=== PATIENT | male | born 1945 | race Hispanic/Latino ===

== ENCOUNTER 2020-03-25 08:32 | Day surgery (SDC) | payer OTHER, MEDICARE ==
--- OUTSIDE RECORDS SUMMARY | 2020-03-25 08:22 | XMS REPORT | Clinical Summary ---
:1945 Author Organization [facility] Address [address] [place] [address] Care Team Providers Name Role Phone Unavailable Primary Care Provider Unavailable Allergies Not on File Medications Not on file Active Problems Not on file Social History Tobacco Use Types Packs/Day Years Used Date Never Assessed Sex Assigned at Date Recorded Not on file Job Start Date Occupation Industry Not on file Not on file Not on file Travel History Travel Start Travel End No recent travel history available. Last Filed Vital Signs Not on file Plan of Treatment Date Type Specialty Care Team Description 05/08/2020 Hospital Encounter Donell Moore MD [address] [place] [address] 05/08/2020 Surgery Donell Moore CYSTOSCOP Y,INSERTION MD Sabino TRANSPROSTATIC IMPLANT [address] [place] [address] Results Not on fileafter 03/25/2019 Insurance Payer Benefit Plan / Group Subscriber ID Type Phone A ddress MEDICARE MEDICARE A B xxxxxxxxxxx Medicare UNITED HE[employer] - UNITED MEDICARE HMO xxxxxxxxxxx MEDICARE [facility] CARE
[2020-03-25 08:45] LABS: Absolute Lymphocytes (CBC) 1.1 K/uL (0.7-4.9); Basophils % 0.5 % (0-1.3); Hematocrit 42.6 % (39.6-49.0); Lymphocytes % 21.5 % (15.3-44.8); MPV 8.3 fL (7.6-11.3); RBC Red Blood Cell Count 4.52 M/uL (4.33-5.43)
--- NOTE | 2020-03-25 08:50 | RAD REPORT ---
EXAM DESCRIPTION: Ean Cantrell (2 Views)03/25/2020 8:34 am CLINICAL HISTORY: Preop for neck mass surgery COMPARISON: None FINDINGS: The lungs appear clear of acute infiltrate. The heart is normal size IMPRESSION: No acute abnormalities displayed
[2020-03-25] MEDS ORDERED: NA CHLORIDE 0.9% 1,000 ML ONE (09:11)
[2020-03-25] MEDS ORDERED: CEFAZOLIN/SWI 1gm 1 GM/10 ML SYR ONE (09:11)
[2020-03-25 09:22] LABS: BUN Blood Urea Nitrogen 17 mg/dL (7-18); Bicarbonate 28 mmol/L (21-32); Glucose Level 162 mg/dL (74-106); Potassium 4.2 mmol/L (3.5-5.1); Sodium Level 140 mmol/L (136-145)
[2020-03-25] MEDS ORDERED: MIDAZOLAM HCL 2 MG/2 ML INJ ONE (10:00)
[2020-03-25] MEDS ORDERED: LIDOCAINE 2% MPF 5 ML VIAL ONE (10:00)
[2020-03-25] MEDS ORDERED: dexAMETHasone 10 MG/ML VIAL ONE (10:00)
[2020-03-25] MEDS ORDERED: propofoL 200 MG/20 ML VIAL IV ONE (10:00)
[2020-03-25] MEDS ORDERED: FENTANYL CITR 100 MCG/2 ML ONE (10:00)
[2020-03-25] MEDS ORDERED: GLYCOPYRROLATE 0.2 MG/ML SYR ONE (11:03)
--- OUTSIDE RECORDS SUMMARY | 2020-03-25 11:04 | XMS REPORT | Clinical Summary ---
:1945 Author Organization [facility] Address [address] [place] [address] Care Team Providers Name Role Phone Unavailable [...] Moore MD [address] [place] [address] 05/08/2020 Surgery Donell Moore CYSTOSCOP Y,INSERTION MD Sabino TRANSPROSTATIC IMPLANT [address] [place] [address] Results Not on fileafter 03/25/2019 Insurance Payer Benefit Plan / Group Subscriber ID Type Phone A ddress MEDICARE MEDICARE A B xxxxxxxxxxx Medicare UNITED HEALTHCARE - UNITED MEDICARE HMO xxxxxxxxxxx MEDICARE MGD CARE
[2020-03-25] MEDS ORDERED: KETOROLAC 30 MG/ML INJ ONE (11:31)
--- NOTE | 2020-03-25 11:44 | EKG ---
Test Date: 2020-03-25 Test Time: 07:09:21 Corn Grinder: JUSTIN MEASUREMENT RESULTS: Intervals: Rate: 51 WY: 160 QRSD: 94 QT: 392 QTc: 361 Section: P: 68 WY: 160 QRS: 59 T: 56 INTERPRETIVE STATEMENTS: Sinus bradycardia Otherwise normal ECG Compared to ECG 05/22/2007 14:11:35 No significant changes Electronically Signed On 03-25-20 11:43:03 CDT by Jared Bee
[2020-03-25 12:07] VITALS: O2SAT 100
[2020-03-25 12:35] VITALS: TEMP 97.2
[2020-03-25] MEDS ORDERED: CODEINE 30MG/APAP 300MG TAB ONE (13:10)
[2020-03-25 13:55] VITALS: BP 148/72
--- NOTE | 2020-03-25 14:28 | OP ---
Date of Procedure: 03/25/2020 Surgeon: Hesham Kiran MD Preoperative Diagnoses: Left neck mass and inflamed right back mass. Postoperative Diagnoses: Left neck mass and inflamed right back mass. Procedure: 1.Wide excision of left neck mass 4 x 2 cm with layered closure. Length of closure is 4 cm. 2.Wide excision, right back mass, 8 x 3 cm with layered closure. Length of closure was 8 cm. Estimated Blood Loss: Minimal. Specimen: Left neck and right back mass. Findings: Sebaceous cyst. Anesthesia: General. Complications: None. Patient tolerated the procedure in stable condition, taken to Recovery in good general condition. Procedure In Detail: Patient was brought to the OR and placed in supine position. General anesthesi a begun. Patient was placed in the right lateral position. Prepped and draped in the usual sterile fashion. Marcaine 0.5% was infiltrated locally. A 15-blade was used to make a 4 x 2 cm incision on the left side. Subcutaneous tissue was divided. The entire cyst was excised and sent to Pathology a s specimen. Wound irrigated. Bleeding was controlled with cautery. Flaps created. 2-0 chromic was used to approximate the subcutaneous tissue and 3-0 nylon was used to close the skin. Then 8 x 3 cm incision was made on the right back. Found an inflamed sebaceous cyst, approximately 2.5 cm in diam eter. Subcutaneous tissue divided. Entire cyst wall and contents excised, sent to Pathology as spec imen. Wound irrigated. Bleeding controlled with cautery. Flaps created. 2-0 chromic was used to a pproximate the subcutaneous tissue and 3-0 nylon used to close the skin. Sterile dressing applied. Patient was awakened and taken to Recovery in good general condition. Discharge Note: Patient will go to Day Surgery and home when stable. Disposition: Home. Condition: Stable. Discharge Instructions: Resume home medications and diet. Activity as tolerated. No heavy lifting. Remove outer dressing in 2 days. Shower. Keep wound clean, dry. Follow up in my office in 2 week s. Call for appointment. Tylenol No. 3 one tablet p.o. q.4 p.r.n. pain. Cipro 500 mg p.o. q.12. D ry and wash the wound daily. JOE/JUAN Voice ID: [id number] Report ID: [id number]
== END 2020-03-25 13:45 | disposition home or self-care (01) ==
LOC: OR 08:32
PROVIDERS: ATTEND Surgery
PROC: 0JB70ZZ Excision of Back Subcutaneous Tissue and Fascia, Open Approach (ICD-10-PCS; 2020-03-25)
PROC: 0JB50ZZ Excision of Left Neck Subcutaneous Tissue and Fascia, Open Approach (ICD-10-PCS; principal; 2020-03-25 10:00)
DX: L72.0 Epidermal cyst (principal); R22.2 Localized swelling, mass and lump, trunk
CPT/HCPCS: 93005; 85025; 80048; 36415; 82947; 88304; 71046; 11424; 11406; J2704; J2250; J3010; J1100; J0690; J7030; 88305

== ENCOUNTER 2021-10-28 10:50 | Inpatient (IN) | payer OTHER, MEDICARE ==
--- OUTSIDE RECORDS SUMMARY | 2021-10-28 10:54 | XMS REPORT | Continuity of Care Document ---
:1945 Author Organization [facility] t Address [address] [place] [address] Care Team Providers Name Role Phone Pcp, Does Not Have A Primary Care Physician ENMANUEL MOORE Attending Clinician Unavailable Nurse, Pob Immunization Attending Clinician Unavailable Anderson Knox DO Attending Clinician Hitesh Moore MD Attending Clinician ENMANUEL OMORE Admitting Clinician Unavailable Payers Payer Name Policy Type Policy Number Effective Date Expiration Date S ashley MEDICARE A B [id number] 2012 00:00:00 [facility] [id number] 2019 HEALTHCARE 00:00:00 UNITED MEDICARE HMO [id number] 2019 00:00:00 Problems Condition Condition Condition Status Onset Resolution Last Treating Co mments Source Name Details Category Date Date Treatment Clinician Date BPH BPH Disease Active 2010-10 [facility] (benign (benign 1-14 College prostatic prostatic 00:00: of hyperplasi hyperplasi 00 Me dicin a) a) e Hypertroph Hypertroph Disease Active 2010-10 [facility] of y of 0-17 College prostate prostate 00:00: of with with 00 Medicin urinary urinary e obstructio obstructio n and n and other other lower lower urinary urinary tract tract symptoms symptoms (LUTS) (LUTS) Elevated Elevated Disease Active 2010-10 Balaji r prostate prostate 0-17 Colleg e specific specific 00:00: of antigen antigen 00 Medicin (PSA) (PSA) e Allergies, Adverse Reactions, Alerts Allergy Allergy Status Severity Reaction(s) Onset Inactive Treating Comm ents Source Name Type Date Date Clinician KETAMINE [facility]ergy [facility] MORPHINE Allergy Active N\T\V [facility] Ketamine Propensi Active hallucina [facility] te Dustin adverse 00:00: of reaction 00 Medicin s to e drug Morphine Propensi Active Nausea And [facility] ty to Vomiting 05-06 Dustin adverse 00:00: of reaction 00 Medicin s to e drug NO KNOWN Allergy Active [facility] Social History Social Habit Start Date Stop Date Quantity Comments Source Alcohol intake 2021-06-09 2021-06-09 .29 /d [facility] Col lege of 00:00:00 00:00:00 Medicine Alcohol Comment 2011-11-29 2011-11-29 social drinker [facility] of 00:00:00 00:00:00 Medicine Tobacco use and 2011-08-02 2011-08-02 Never used [facility] of exposure 00:00:00 00:00:00 Medicine Sex [birth year] [facility] of 00:00:00 00:00:00 Medicine Smoking Status Start Date Stop Date Source Unknown if ever smoked [facility] Never smoker [facility] o f Medicine Medications Ordered Filled Start Stop Current Ordering Indication Dosage Frequency Signature Comments Components Source Medication Medication Date Date Medication? Clinician (SIG) Name Name finasteride Yes [id number] 5mg Take 1 Praneeth (PROSCAR) 5 8-24 Tablet by Col lege MG tablet 00:00: mouth of 00 daily. Medicin e meloxicam Yes [id number] 7.5mg Take 1 [facility] (MOBIC) 7.5 8-24 Tablet by Col lege MG tablet 00:00: mouth of 00 daily. Medicin e finasteride 2020- No [id number] Take 1 [facility] (PROSCAR) 5 6-11 08-24 tablet by Co llege MG tablet 00:00: 00:00 mouth once o f 00 :00 daily Medicin e amoxicillin 2019-10 Yes [id number] 1{tbl} Take 1 [facility] -clavulanat 2-07 Tablet by Col lege e 00:00: mouth two of (AUGMENTIN) 00 times Medicin 875-125 MG daily. e per tablet metformin 2019-10- No 500mg Take 500 [facility] (GLUCOPHAGE 11-17 12 mg by Ada coles ) 500 MG 16:04: 00:00 mouth. of tablet 17 :00 Medicin e levothyroxi 2019-10- No 112ug Take 112 Praneeth ne 11-17 12 mcg by Dustin (SYNTHROID) 16:04: 00:00 mouth. of 112 MCG 11 :00 Medicin tablet e finasteride 2019-10- No 5mg Take 5 mg [facility] (PROSCAR) 5 - 12 by mouth. Co llege MG tablet 16:04: 00:00 of 04 :00 Medicin e meloxicam 2019-10 Yes [id number] 7.5mg Take 1 [facility] (MOBIC) 7.5 2-01 Tablet by Col lege MG tablet 00:00: mouth of 00 daily. Medicin e sulfamethox 2019-10 Yes [id number] 1{tbl} Take 1 Praneeth azole-trime 2-01 Tablet by Col lege thoprim 00:00: mouth two of (BACTRIM 00 times Medicin DS) 800-160 daily. e MG per tablet meloxicam 2019-10 Yes [id number] 7.5mg Take 1 [facility] (MOBIC) 7.5 2-01 Tablet by Col lege MG tablet 00:00: mouth of 00 daily. Medicin e sulfamethox 2019-10 Yes [id number] 1{tbl} Take 1 Praneeth azole-trime 2-01 Tablet by Col lege thoprim 00:00: mouth two of (BACTRIM 00 times Medicin DS) 800-160 daily. e MG per tablet finasteride Yes [id number] TAKE 1 [facility] (PROSCAR) 5 5-14 TABLET BY Col lege MG tablet 00:00: MOUTH ONCE of 00 DAILY Medicin e finasteride Yes [id number] TAKE 1 [facility] (PROSCAR) 5 5-14 TABLET BY Col lege MG tablet 00:00: MOUTH ONCE of 00 DAILY Medicin e finasteride Yes [id number] TAKE 1 [facility]ane[facility] (PROSCAR) 5 5-14 TABLET BY Col lege MG tablet 00:00: MOUTH ONCE of 00 DAILY Medicin e aspirin 81 2019- 2020- No 81mg Take 81 mg Praneeth MG tablet 3-10 03-10 by mouth Colle ge 20:39: 00:00 daily. of 29 :00 Medicin e finasteride Yes [id number] TAKE 1 [facility] (PROSCAR) 5 2-18 TABLET BY Col lege MG tablet 00:00: MOUTH ONCE of 00 DAILY Medicin e amoxicillin 2020- No 1{tbl} Take 1 Tab [facility] -clavulanat 7-15 03-10 by mouth Col lege e 00:00: 00:00 two times of (AUGMENTIN) 00 :00 daily. Medici n 875-125 MG e per tablet levothyroxi Yes TAKE 1 [facility] 6-06 TABLET BY Dustin (SYNTHROID) 00:00: MOUTH ONCE of 112 MCG 00 DAILY Medicin tablet e levothyroxi Yes TAKE 1 [facility] 6-06 TABLET BY Dustin (SYNTHROID) 00:00: MOUTH ONCE of 112 MCG 00 DAILY Medicin tablet e levothyroxi Yes TAKE 1 [facility] 6-06 TABLET BY Dustin (SYNTHROID) 00:00: MOUTH ONCE of 112 MCG 00 DAILY Medicin tablet e levothyroxi Yes TAKE 1 [facility] 6-06 TABLET BY Dustin (SYNTHROID) 00:00: MOUTH ONCE of 112 MCG 00 DAILY Medicin tablet e levothyroxi Yes TAKE 1 [facility] 6-06 TABLET BY Dustin (SYNTHROID) 00:00: MOUTH ONCE of 112 MCG 00 DAILY Medicin tablet e levofloxaci 2020- No [facility] 5-20 03-10 College (LEVAQUIN) 00:00: 00:00 of 500 MG 00 :00 Medicin tablet e tobramycin- 2020- No [facility] dexamethaso 5-07 03-10 College ne 00:00: 00:00 of (TOBRADEX) 00 :00 Medicin 0.3-0.1 % e ophthalmic solution metformin Yes [facility] (GLUCOPHAGE 1-04 Dustin ) 500 MG 00:00: of tablet 00 Medicin e metformin Yes [facility] (GLUCOPHAGE 1-04 Dustin ) 500 MG 00:00: of tablet 00 Medicin e metformin Yes [facility] (GLUCOPHAGE 1-04 Dustin ) 500 MG 00:00: of tablet 00 Medicin e metformin Yes [facility] (GLUCOPHAGE 1-04 Dustin ) 500 MG 00:00: of tablet 00 Medicin e metformin Yes [facility] (GLUCOPHAGE 1-04 Dustin ) 500 MG 00:00: of tablet 00 Medicin e levothyroxi 2020- No [facility] 07-14-10 Dustin (SYNTHROID) 00:00: 00:00 of 100 MCG 00 :00 Medicin tablet e Immunizations Ordered Filled Immunization Date Status Comments [facility] e Immunization Name Name SARS-COV-2 COVID-19 2021-06-18 Completed Unive rsity of MODERNA VACCINE 00:00:00 [facility] SARS-COV-2 COVID-19 2020-12-17 Completed Unive rsity of MODERNA VACCINE 00:00:00 [facility] SARS-COV-2 COVID-19 2020-11-19 Completed Unive rsity of MODERNA VACCINE 00:00:00 [facility] Vital Signs Vital Name Observation Time Observation Value Comments Source HEIGHT 2020-03-13 00:00:00 180.3 cm WEIGHT 2020-03-13 00:00:00 96.752 kg Systolic blood 2021-06-09 19:20:00 137 mm[Hg] [facility] pressure Medicine Diastolic blood 2021-06-09 19:20:00 79 mm[Hg] [facility] Medicine Heart rate 2021-06-09 19:20:00 60 /min [facility] Respiratory rate 2021-06-09 19:20:00 17 /min [facility] Body height 2021-06-09 19:20:00 180.3 cm [facility] Body weight 2021-06-09 19:20:00 96.616 kg [facility] BMI 2021-06-09 19:20:00 29.71 kg/m2 [facility] Systolic blood 2020-10-28 15:49:00 162 mm[Hg] [facility] pressure Medicine Diastolic blood 2020-10-28 15:49:00 82 mm[Hg] [facility] pressure Medicine Heart rate 2020-10-28 15:49:00 54 /min [facility] Body temperature 2020-10-28 15:49:00 36.94 Aimee [facility] Heart rate 2020-09-16 16:02:00 52 /min [facility] ol[facility] of Medicine Body height 2020-09-16 16:02:00 180.3 cm [facility] Body weight 2020-09-16 16:02:00 96.616 kg [facility] BMI 2020-09-16 16:02:00 29.71 [facility]m2 [facility] Sy[facility] blood 2020-09-16 16:02:00 137 mm[Hg] [facility] pressure Medicine Diastolic blood 2020-09-16 16:02:00 73 mm[Hg] [facility] pressure Medicine Systolic blood 2020-06-06 20:17:00 138 mm[Hg] [facility] pressure Medicine Diastolic blood 2020-06-06 20:17:00 71 mm[Hg] [facility] pressure Medicine Heart rate 2020-06-06 20:17:00 58 /min [facility] ollege [facility] Systolic blood 2020-06-06 20:17:00 138 mm[Hg] [facility] pressure Medicine Diastolic blood 2020-06-06 20:17:00 71 mm[Hg] [facility] pressure Medicine Heart rate 2020-06-06 20:17:00 58 /min [facility] HEIGHT 2020-03-13 00:00:00 180.3 cm WEIGHT 2020-03-13 00:00:00 96.752 kg HEIGHT 2020-05-03 00:00:00 180.3 cm WEIGHT 2020-05-03 00:00:00 98.476 kg HEIGHT 2020-05-03 00:00:00 180.3 cm WEIGHT 2020-05-03 00:00:00 98.476 kg Systolic blood 2019-12-25 20:38:00 141 mm[Hg] [facility] pressure Medicine Diastolic blood 2019-12-25 20:38:00 72 mm[Hg] [facility] pressure Medicine Heart rate 2019-12-25 20:38:00 56 /min [facility] Medicine Body temperature 2019-12-25 20:38:00 36.44 Aimee [facility] Body height 2019-12-25 20:38:00 177.8 cm [facility] weight 2019-12-25 20:38:00 96.163 kg [facility] BMI 2019-12-25 20:38:00 30.42 kg/m2 [facility] Systolic blood 2019-12-25 20:38:00 141 mm[Hg] [facility] pressure Medicine Diastolic blood 2019-12-25 20:38:00 72 mm[Hg] [facility] Medicine Heart rate 2019-12-25 20:38:00 56 /min [facility] Body temperature 2019-12-25 20:38:00 36.44 Aimee [facility] Body height 2019-12-25 20:38:00 177.8 cm [facility] Body weight 2019-12-25 20:38:00 96.163 kg [facility] BMI 2019-12-25 20:38:00 30.42 kg/m2 [facility] Procedures Procedure Date / Time Performing Clinician Source Performed SARS-COV-2 COVID-19 2021-06-18 16:51:07 Doctor Unassigned, [facility],0.5ML,IM Name [facility] ([facility]) POCT URINALYSIS 2021-06-09 00:00:00 Donell Moore [facility] DIPSTICK Medicine LACEY,POST-VOID 2021-06-09 00:00:00 Donell Moore [facility],,NON-IMG Medicine POCT URINALYSIS 2020-10-28 00:00:00 Donell Moore [facility] DIPSTICK Medicine LACEY,POST-VOID 2020-10-28 00:00:00 Donell Moore [facility],,NON-IMG Medicine LACEY,POST-VOID 2020-06-06 20:34:00 Donell Moore [facility],,NON-IMG Medicine POCT URINALYSIS 2019-12-25 00:00:00 Donell Moore [facility] DIPSTICK Medicine LACEY,POST-VOID 2019-12-25 00:00:00 Donell Moore [facility] of RES,US,NON-IMG Medicine Plan of Care Planned Activity Planned Date Details Comments Source Future Scheduled 2021-06-09 CULTURE, Ordered: 06/09/2021 [facility] Test 14:33:34 URINE/SENSITIVITY of Medicin e ON ALL [code = 44220-7] Future Scheduled 2021-06-09 URINALYSIS AUTO 6 Occurrences [facility] Test 14:33:34 W/SCOPE [code = starting 06/09/2021 of Me dicine 07849-7] until 06/09/2022 Future Scheduled 2021-06-09 Screening for Prane[facility] Col lege Test 14:19:07 malignant neoplasm of Medici ne of colon (procedure) [code = 701327746] Future Scheduled 2021-06-09 TETANUS SHOT [facility] Test 14:19:07 (ADULT) [code = of Medicine TETANUS SHOT (ADULT)] Future Scheduled 2021-06-09 BMI FOLLOW UP PLAN [facility] Test 14:19:07 [code = BMI FOLLOW of Medici ne UP PLAN] Future Scheduled 2021-06-09 Hepatitis C [facility] Test 14:19:07 screening of Medicine (procedure) [code = 097377181] Future Scheduled 2021-06-09 ZOSTER VACCINE (1 [facility] Test 14:19:07 of 2) [code = of Medicine ZOSTER VACCINE (1 of 2)] Future Scheduled 2021-06-09 MEDICARE AWV [facility] Test 14:19:07 (Initial) [code = of Medicin e MEDICARE AWV (Initial)] Future Scheduled 2021-06-09 FALL SCREEN [code = [facility] Test 14:19:07 FALL SCREEN] of Medicine Future Scheduled 2021-06-09 PNEUMOVAX >=65 [facility] Test 14:19:07 (PPSV23) [code = of Medicine PNEUMOVAX >=65 (PPSV23)] Future Scheduled 2021-06-09 FLU VACCINE > 6 [facility] C [facility] Test 14:19:07 MONTHS [code = FLU of Medici ne VACCINE > 6 MONTHS] Future Scheduled COLON CANCER [facility] Test SCREENING: of Medicine COLONOSCOPY [code = COLON CANCER SCREENING: COLONOSCOPY] Future Scheduled COVID-19 Vaccine [facility] Test Evaluation [code = of Medici ne COVID-19 Vaccine Evaluation] Future Scheduled TETANUS SHOT [facility] Test (ADULT) [code = of Medicine TETANUS SHOT (ADULT)] Future Scheduled BMI FOLLOW UP PLAN [employer] Test [code = BMI FOLLOW of Medici ne UP PLAN] Future Scheduled HEPATITIS C [facility] Test SCREENING [code = of Medicin e HEPATITIS C SCREENING] Future Scheduled ZOSTER VACCINE (1 [facility] Test of 2) [code = of Medicine ZOSTER VACCINE (1 of 2)] Future Scheduled MEDICARE AWV Prane[facility] Test (Initial) [code = of Medicin e MEDICARE AWV (Initial)] Future Scheduled FALL SCREEN [code = [employer] Test FALL SCREEN] of Medicine Future Scheduled PNEUMOVAX >=65 [facility] Test (PPSV23) [code = of Medicine PNEUMOVAX >=65 (PPSV23)] Future Scheduled FLU VACCINE > 6 [facility] C [facility]lege Test MONTHS [code = FLU of Medici ne VACCINE > 6 MONTHS] Future Scheduled COLON CANCER [facility] Test SCREENING: of Medicine COLONOSCOPY [code = COLON CANCER SCREENING: COLONOSCOPY] Future Scheduled TETANUS SHOT [facility] Test (ADULT) [code = of Medicine TETANUS SHOT (ADULT)] Future Scheduled BMI FOLLOW UP PLAN [facility] Test [code = BMI FOLLOW of Medici ne UP PLAN] Future Scheduled HEPATITIS C [facility] Test SCREENING [code = of Medicin e HEPATITIS C SCREENING] Future Scheduled FALL SCREEN [code = [employer] Test FALL SCREEN] of Medicine Future Scheduled PNEUMOVAX >=65 [facility] Test (PPSV23) [code = of Medicine PNEUMOVAX >=65 (PPSV23)] Future Scheduled PREVNAR >= 65 [facility] Test (PCV13) [code = of Medicine PREVNAR >= 65 (PCV13)] Future Scheduled MEDICARE AWV [facility] Test (Initial) [code = of Medicin e MEDICARE AWV (Initial)] Future Scheduled FLU VACCINE > 6 [facility] Test MONTHS [code = FLU of Medici ne VACCINE > 6 MONTHS] Future Scheduled COLON CANCER [facility] Test SCREENING: of Medicine COLONOSCOPY [code = COLON CANCER SCREENING: COLONOSCOPY] Future Scheduled TETANUS SHOT [facility] Test (ADULT) [code = of Medicine TETANUS SHOT (ADULT)] Future Scheduled BMI FOLLOW UP PLAN [employer] Test [code = BMI FOLLOW of Medici ne UP PLAN] Future Scheduled HEPATITIS C [facility] Test SCREENING [code = of Medicin e HEPATITIS C SCREENING] Future Scheduled ZOSTER VACCINE (1 [facility] Test of 2) [code = of Medicine ZOSTER VACCINE (1 of 2)] Future Scheduled MEDICARE AWV [facility] Test (Initial) [code = of Medicin e MEDICARE AWV (Initial)] Future Scheduled FALL SCREEN [code = [employer] Test FALL SCREEN] of Medicine Future Scheduled PNEUMOVAX >=65 [facility] Test (PPSV23) [code = of Medicine PNEUMOVAX >=65 (PPSV23)] Future Scheduled FLU VACCINE > 6 [facility] C [facility] Test MONTHS [code = FLU of Medici ne VACCINE > 6 MONTHS] Future Scheduled URINALYSIS AUTO Ordered: 09/16/2020 [facility] Test W/SCOPE [code = of Medicine 72068-0] Future Scheduled CULTURE, Ordered: 09/16/2020 [facility] [employer] Test URINE/SENSITIVITY of Medicin e ON ALL [code = 63233-2] Future Scheduled COLON CANCER [facility] Test SCREENING: of Medicine COLONOSCOPY [code = COLON CANCER SCREENING: COLONOSCOPY] Future Scheduled TETANUS SHOT [facility] Test (ADULT) [code = of Medicine TETANUS SHOT (ADULT)] Future Scheduled BMI FOLLOW UP PLAN [employer] Test [code = BMI FOLLOW of Medici ne UP PLAN] Future Scheduled HEPATITIS C [facility] Test SCREENING [code = of Medicin e HEPATITIS C SCREENING] Future Scheduled ZOSTER VACCINE (1 [facility] Test of 2) [code = of Medicine ZOSTER VACCINE (1 of 2)] Future Scheduled MEDICARE AWV [facility] Test (Initial) [code = of Medicin e MEDICARE AWV (Initial)] Future Scheduled FALL SCREEN [code = [employer] Test FALL SCREEN] of Medicine Future Scheduled PNEUMOVAX >=65 [facility] Test (PPSV23) [code = of Medicine PNEUMOVAX >=65 (PPSV23)] Future Scheduled FLU VACCINE > 6 [facility] C [facility]lege Test MONTHS [code = FLU of Medici ne VACCINE > 6 MONTHS] Future Scheduled CYSTOSCOPY [code = 1 Occurrences [facility] Test [id number]] starting 12/25/2019 of Medic ine until 12/24/2020 Future Scheduled US TRANSRECTAL 1 Occurrences [facility] C [facility] Test [code = 86921-6] starting 12/25/2019 of M edicine until 07/26/2020 Encounters Start End Encounter Admission Attending Care Care Encounter Source Date/Time Date/Time Type Type Clinicians Facility Department ID 2021-07-21 Outpatient CHANDRA MOORE Surgery [id number] [facility] 15:32:42 CHRISTOPHER 2021-06-18 2021-06-18 Imm/Inj Nurse, Adc Pob Immunization [facility] [id number] [employer] 11:44:39 11:45:51 Visit Niels Knox 350.1.13 .10 [facility] 4.2.7.2.686 Latesha morillo Professio [id number] Ak dical nal [address] [place] [address] 2021-06-09 2021-06-09 Office CONNIE Moore [id number] [facility] 14:09:55 14:19:55 Visit Christopher AMBULATOR 350.1.13.21 College P Y 0.2.7.2.686 of [id number] Medi gregg 300 e 2020-10-28 2020-10-28 Office CONNIE Moore [id number] [facility] 09:04:29 09:14:29 Visit Christopher AMBULATOR 350.1.13.21 College P Y 0.2.7.2.686 of [id number] Medi gregg 300 e 2020-09-16 2020-09-16 Office CONNIE Moore [id number] [facility] 09:21:02 11:37:31 Visit Christopher AMBULATOR 350.1.13.21 College P Y 0.2.7.2.686 of [id number] Medi gregg 300 e 2020-06-06 2020-06-06 Office CONNIE Moore [id number] 14:45:52 15:36:35 Visit Christopher AMBULATOR 350.1.13.21 P Y 0.2.7.2.686 [id number] 2020-06-06 2020-06-06 CONNIE Meneses [id number] [place] [address] 14:45:52 15:36:35 Visit Christopher AMBULATOR 350.1.13.21 College P Y 0.2.7.2.686 of [id number] Medi gregg 300 e 2020-05-06 2020-05-06 Outpatient EL [facility] [id number] [facility] 00:00:00 00:00:00 2020-05-05 2020-05-05 Outpatient [facility] [id number] [facility] 00:00:00 00:00:00 2020-05-03 2020-05-03 Outpatient SLE SLE [id number] [facility] 00:00:00 00:00:00 2020-05-03 2020-05-03 Outpatient EL [facility] [id number] [facility] 00:00:00 00:00:00 2019-12-25 2019-12-25 CONNIE Meneses [id number] [place] [address] 14:28:27 16:08:26 Visit Christopher AMBULATOR 350.1.13.21 College P Y 0.2.7.2.686 of [id number] [facility] 300 e 2019-12-25 2019-12-25 CONNIE Meneses 1.2.840.114 [id number] 14:28:27 16:08:26 Visit Christopher AMBULATOR 350.1.13.21 P Y 0.2.7.2.686 [id number] Results Test Description Test Time Test Comments Results Result Comments Source POCT URINALYSIS DIPSTICK 2021-06-09 00:00:00 Test Item Value Reference Range Interpretation Comme nts COLOR UA (test code = 5778-6) Yellow YELLOW/STRAW CLARITY UA (test code = 52653-2) Clear CLEAR GLUCOSE UA (test code = 5792-7) Negative NEGATIVE BILIRUBIN UA (test code = 5770-3) Negative NEGATIVE KETONES UA (test code = 86015-8) Negative NEGATIVE SPECIFIC GRAVITY UA (test code = 5811-5) 1.005-1.035 BLOOD UA (test code = 5794-3) Negative NEGATIVE PH UA (test code = 5803-2) 5.0-9.0 PROTEIN UA (test code = 5804-0) Negative NEGATIVE UROBILINOGEN UA (test code = 5818-0) 0.02 E.U/DL NORMAL MG/DL LEUKOCYTE ESTERASE UA (test code = 5799-2) Negative NEGATIVE NITRITE UA (test code = 5802-4) Negative NEGATIVE REDUCING SUBSTANCES URINE (test code = 57250-3) [facility],POST-VOID RES,,[id number] 00:00:00 Test Item Value Reference Range Interpretation Comments PVR (test code = 6116) cc/[facility] [id number] 00:00:00 Test Item Value Reference Range Interpretation Comments COLOR UA (test code = 5778-6) Yellow YELLOW/STRAW CLARITY UA (test code = 22744-3) Clear CLEAR GLUCOSE UA (test code = 5792-7) Negative NEGATIVE BILIRUBIN UA (test code = 5770-3) Negative NEGATIVE KETONES UA (test code = 26138-7) Negative NEGATIVE SPECIFIC GRAVITY UA (test code = 1.005-1.035 A 5811-5) BLOOD UA (test code = 5794-3) Negative NEGATIVE PH UA (test code = 5803-2) 5-9 PROTEIN UA (test code = 5804-0) Negative NEGATIVE UROBILINOGEN UA (test code = 0.02 E.U/DL NORMAL MG/DL 5818-0) LEUKOCYTE ESTERASE UA (test code Negative NEGATIVE = 5799-2) NITRITE UA (test code = 5802-4) Negative NEGATIVE REDUCING SUBSTANCES URINE (test code = 77653-6) Lab Interpretation (test code = Abnormal 49880-3) [facility],POST-VOID RES,,[id number] 00:00:00 Test Item Value Reference Range Interpretation Comments PVR (test code = 6116) cc/ml [facility],POST-VOID RES,,[id number] 20:34:00 Test Item Value Reference Range Interpretation Comments PVR (test code = 6116) cc/ml [facility] [id number] 07:21:00 Test Item Value Reference Range Interpretation Comments POC-GLUCOSE METER 156 mg/dL 70-110 H : TESTED A T [facility] 6720 (REGINALDO) (test code [facility], = 1538) [address]: Upstairs Maid/Techni celena ID = [id number] for CAROL RAMOSMARILEEMICHELLE SARS-COV2/RT-PCR ([facility])2020-05-04 14:28:00 Test Item Value Reference Range Interpretation Comments SARS-COV2/RT-PCR (test code = Negative Not Detected, Negative [id number]) SARS-COV-[address] [facility] (test code = 2629193) Negative result for this test determines that SARS-CoV-2 RNA was not present in the specimen above the Limit of Detection (LOD). However, Negative results do not preclude SARS-CoV-2 infection and should not be used as the sole basis for treatment or patient management decisions. Negative results mustbe combined with clinical observations, patient history, and epidemiological information. A false negative result may occur if a specimen is improperly collected, transported or handled. A false negative result should be considered if patient's recent exposures or clinical presentation indicate that COVID-19 (SARS-CoV-2) is likely and diagnostic tests for other causes of illness are negative. Re-testing should be considered in cases of suspected false negatives.The limit of detection for this assay is 800 copies/mL.This SARS CoV-2 test is a real-time RT-PCR test intended for the qualitative detection of nucleic acid from SARS-CoV-2 in a nasopharyngeal swab specimen collected from individuals susp ected of COVID-19 by their healthcare provider.This test has not been Food and Drug Administration (FDA) cleared or approved. This is a modified version of an approved Emergency Use Authorization (EUA) and is in the process of review by the FDA. Once authorized by the FDA, the issued EUA will be effective until the declaration that circumstances exist justifying the authorization of the emergency use of in vitro diagnostic tests for detection and/or diagnosis of COVID-19 is terminated under Section 564(b)(2) of the Act or the EUA is revoked under Section 564(g) of the Act.Fact Sheet for Healthcare Providers:https://www.TSB.[employer]/sites/default/files/product/documents/Fact_Shee v_BK_Wpgdurtgk_Rtkj_IQPZ-TfJ-9.pdfFact Sheet for Healthcare Patients:https://www.TSB.[employer]/sites/default/files/product/ documents/Sttk_Gvoje_Czkwbqku_Twkq_WQYZ-FuJ-1.pdfPerforming Laboratory:[facility], [place] [address]ZIUMN CULTURE 2020-05-04 08:36:00 Test Item Value Reference Range Interpretation Comments CULTURE (BEAKER) (test 10-19,000 col/mL skin code = 1095) sander URINALYSIS W/ [id number] 10:16:00 Test Item Value Reference Range Interpretation Comments COLOR (BEAKER) (test code = 470) Yellow CLARITY (BEAKER) (test code = 469) Clear SPECIFIC GRAVITY UA (BEAKER) (test 1.027 1.001-1.035 code = 468) PH UA (BEAKER) (test code = 467) 5.5 5.0-8.0 PROTEIN UA (BEAKER) (test code = Negative Negative 464) GLUCOSE UA (BEAKER) (test code = 30 mg/dL Negative A 365) KETONES UA (BEAKER) (test code = Negative Negative 371) BILIRUBIN UA (BEAKER) (test code = Negative Negative 462) BLOOD UA (BEAKER) (test code = Negative Negative 461) NITRITE UA (BEAKER) (test code = Negative Negative 465) LEUKOCYTE ESTERASE UA (BEAKER) Negative Negative (test code = 466) UROBILINOGEN UA (BEAKER) (test 0.2 mg/dL 0.2-1.0 code = 463) RBC UA (BEAKER) (test code = 519) 7 /HPF WBC UA (BEAKER) (test code = 520) 2 /HPF MUCUS (BEAKER) (test code = 1574) Occasional AMORPHOUS CRYSTALS (BEAKER) (test Rare code = 1584) SOURCE(BEAKER) (test code = 2795) Upstairs Maid ID - [auto]Upstairs Maid ID - techBASIC METABOLIC [id number] 10:00:00 Test Item Value Reference Range Interpretation Comments SODIUM (BEAKER) 138 meq/L 136-145 (test code = 381) POTASSIUM (BEAKER) 4.6 meq/L 3.5-5.1 Specimen slightly (test code = 379) hemolyzed CHLORIDE (BEAKER) 108 meq/L 98-107 H (test code = 382) CO2 (BEAKER) (test 26 meq/L 22-29 code = 355) BLOOD UREA NITROGEN 17 mg/dL 7-21 (BEAKER) (test code = 354) CREATININE (BEAKER) 0.79 mg/dL 0.57-1.25 Specimen slightly (test code = 358) hemolyzed GLUCOSE RANDOM 187 mg/dL 70-105 H (BEAKER) (test code = 652) CALCIUM (BEAKER) 8.7 mg/dL 8.4-10.2 (test code = 697) EGFR (BEAKER) (test 96 mL/min/1.73 ESTIMA EDIE GFR IS code = 1092) sq m NOT ACCURATE CREATININE CLEARANCE IN PREDICTING GLOMERULAR FILTRATION RATE . ESTIMATED GFR I S NOT APPLICABLE FOR DIALYSIS PATIEN TS. Upstairs Maid ID - MANJIT CCBC W/PLT COUNT & AUTO [id number] 09:44:00 Test Item Value Reference Range Interpretation Comments WHITE BLOOD CELL COUNT (BEAKER) 5.1 K/ L 3.5-10.5 (test code = 775) RED BLOOD CELL COUNT (BEAKER) 4.67 M/ L 4.63-6.08 (test code = 761) HEMOGLOBIN (BEAKER) (test code = 14.8 GM/DL 13.7-17.5 410) HEMATOCRIT (BEAKER) (test code = 42.9 % 40.1-51.0 411) MEAN CORPUSCULAR VOLUME (BEAKER) 91.9 fL 79.0-92.2 (test code = 753) MEAN CORPUSCULAR HEMOGLOBIN 31.7 pg 25.7-32.2 (BEAKER) (test code = 751) MEAN CORPUSCULAR HEMOGLOBIN CONC 34.5 GM/DL 32.3-36.5 (BEAKER) (test code = 752) RED CELL DISTRIBUTION WIDTH 12.6 % 11.6-14.4 (BEAKER) (test code = 412) PLATELET COUNT (BEAKER) (test 146 K/CU MM 150-450 L code = 756) MEAN PLATELET VOLUME (BEAKER) 9.7 fL 9.4-12.4 (test code = 754) NUCLEATED RED BLOOD CELLS 0 /100 WBC 0-0 (BEAKER) (test code = 413) NEUTROPHILS RELATIVE PERCENT 67 % (BEAKER) (test code = 429) LYMPHOCYTES RELATIVE PERCENT 22 % (BEAKER) (test code = 430) MONOCYTES RELATIVE PERCENT 9 % (BEAKER) (test code = 431) EOSINOPHILS RELATIVE PERCENT 1 % (BEAKER) (test code = 432) BASOPHILS RELATIVE PERCENT 0 % (BEAKER) (test code = 437) NEUTROPHILS ABSOLUTE COUNT 3.42 K/ L 1.78-5.38 (BEAKER) (test code = 670) LYMPHOCYTES ABSOLUTE COUNT 1.14 K/ L 1.32-3.57 L (BEAKER) (test code = 414) MONOCYTES ABSOLUTE COUNT (BEAKER) 0.48 K/ L 0.30-0.82 (test code = 415) EOSINOPHILS ABSOLUTE COUNT 0.03 K/ L 0.04-0.54 L (BEAKER) (test code = 416) BASOPHILS ABSOLUTE COUNT (BEAKER) 0.02 K/ L 0.01-0.08 (test code = 417) IMMATURE GRANULOCYTES-RELATIVE 0 % 0-1 PERCENT (BEAKER) (test code = 2801) POCT URINALYSIS [id number] 00:00:00 Test Item Value Reference Range Interpretation Comments COLOR UA (test code = 5778-6) Yellow YELLOW/STRAW CLARITY UA (test code = 01610-0) Clear CLEAR GLUCOSE UA (test code = 5792-7) Negative NEGATIVE BILIRUBIN UA (test code = 5770-3) Negative NEGATIVE KETONES UA (test code = 95328-3) Negative NEGATIVE SPECIFIC GRAVITY UA (test code = 1.005-1.035 5811-5) BLOOD UA (test code = 5794-3) Negative NEGATIVE PH UA (test code = 5803-2) 5-9 PROTEIN UA (test code = 5804-0) Negative NEGATIVE UROBILINOGEN UA (test code = 0.02 E.U/DL NORMAL MG/DL 5818-0) LEUKOCYTE ESTERASE UA (test code Negative NEGATIVE = 5799-2) NITRITE UA (test code = 5802-4) Negative NEGATIVE REDUCING SUBSTANCES URINE (test code = 70896-1) [facility],US,[id number] 00:00:00 Test Item Value Reference Range Interpretation Comments PVR (test code = 6116) cc/ml [facility]
--- NOTE | 2021-10-28 11:14 | RAD REPORT ---
EXAM DESCRIPTION: CT - Ct Stroke Brain Wo Cont - 10/28/2021 11:08 am CLINICAL HISTORY: WEAKNESS COMPARISON: No comparisons TECHNIQUE: Axial 5 millimeter thick images of the head were obtained without IV contrast. All CT scans are performed using dose optimization technique as appropriate and may include automated exposure control or mA/KV adjustment according to patient size. FINDINGS: No intracranial hemorrhage, mass, or cerebral edema. No acute cortical based infarction. N o cortical edema or sulcal effacement. Patient has a bifrontal atrophy pattern with ventricles in pro portion. Vascular calcifications are present. No extra-axial fluid collections. Ritchie matter-white ma tter differentiation is preserved. Visualized portions of the mastoid air cells, paranasal sinuses, and orbits are unremarkable. Findings telephoned to Art 11:14 a.m. IMPRESSION: No CT evidence of acute intracranial process. Bifrontal mild to moderate atrophy pattern with minimal chronic ischemic change.
[2021-10-28 11:28] LABS: Absolute Lymphocytes (CBC) 1.2 K/uL (0.7-4.9); Hematocrit 43.9 % (39.6-49.0); Lymphocytes % 23.2 % (15.3-44.8); MPV 7.6 fL (7.6-11.3); RBC Red Blood Cell Count 4.69 M/uL (4.33-5.43)
[2021-10-28 11:45] LABS: BUN Blood Urea Nitrogen 14 mg/dL (7-18); Bicarbonate 29 mmol/L (21-32); Glucose Level 129 mg/dL (74-106); Magnesium 2.1 mg/dL (1.8-2.4); Potassium 4.2 mmol/L (3.5-5.1); Protime INR 1.01; Sodium Level 138 mmol/L (136-145)
--- NOTE | 2021-10-28 11:55 | RAD REPORT ---
EXAM DESCRIPTION: RAD - Chest Single View - 10/28/2021 11:32 am CLINICAL HISTORY: tia, code stroke chest film COMPARISON: March 2020 TECHNIQUE: AP portable chest image was obtained 10/28/2021 11:32 am . FINDINGS: Lungs are clear. Heart and vasculature are normal. No measurable pleural effusion and no p neumothorax. No acute bony abnormality seen. No acute aortic findings suspected. IMPRESSION: No acute cardiopulmonary process. No significant change from comparison study.
[2021-10-28] MEDS ORDERED: ASPIRIN EC 81 MG TAB PO ONE (12:17)
[2021-10-28] MEDS ORDERED: CLOPIDOGREL 75 MG TABLET ONE (12:18)
--- NOTE | 2021-10-28 12:44 | RAD REPORT ---
EXAM DESCRIPTION: CT - Head angio - 10/28/2021 12:35 pm CLINICAL HISTORY: WEAKNESS, stroke-like symptoms, left arm weakness TECHNIQUE: During dynamic enhancement using nonionic IV contrast, axial 1 millimeter thick images of the head were obtained. Sagittal and axial reconstruction images were generated using MIP technique and reviewed. All CT scans are performed using dose optimization technique as appropriate and may include automated exposure control or mA/KV adjustment according to patient size. COMPARISON: CT head same date FINDINGS: No aneurysm or vascular malformation identified. Major venous sinuses are patent. No named branch occlusion or vasculitis findings. Distal most left vertebral artery is small in diame ter believed be normal variation rather than significant atherosclerotic change. Basilar artery is to rtuous without significant disease identifiable. Atherosclerotic calcifications are seen in the yo nous portions of each internal carotid artery. No significant luminal narrowing identifiable. There a re atherosclerotic changes narrowing the A1 segment of the left anterior cerebral artery. The anterio r communicating artery is present. IMPRESSION: CT angio head examination shows no named branch occlusion, vasculitis or significant va scular finding. The atherosclerotic narrowing of the left anterior cerebral artery A1 segment is not regarded as sign ificant for this acute clinical setting.
--- NOTE | 2021-10-28 12:46 | RAD REPORT ---
EXAM DESCRIPTION: CT - Neck Angio - 10/28/2021 12:35 pm CLINICAL HISTORY: TIAleft arm weakness TECHNIQUE: During dynamic enhancement using nonionic IV contrast, axial 2 mm thick images of the nec k were obtained. Sagittal and axial reconstruction images were generated using MIP technique and revi ewed. All CT scans are performed using dose optimization technique as appropriate and may include automated exposure control or mA/KV adjustment according to patient size. COMPARISON: CT head same date, CT angio head same date FINDINGS: No aneurysm or vascular malformation identified. No carotid or vertebral dissection. Aortic arch is bovine configuration variant with no origins stenosis. Vertebral artery origins unrema rkable as well. No stenosis, vasculitis or other significant carotid artery finding. No focal abnorma lity of either vertebral artery. Right vertebral artery is dominant as a normal variant. Basilar patrice ry is normal. IMPRESSION: Negative CT angio neck examination for acute or significant finding.
--- NOTE | 2021-10-28 13:18 | RAD REPORT ---
EXAM DESCRIPTION: MRI - Brain Wo Cont - 10/28/2021 12:49 pm CLINICAL HISTORY: TIA COMPARISON: Ct Stroke Brain Wo Cont dated 10/28/2021 TECHNIQUE: Sagittal T1-weighted images were obtained along with PD/heavily T2-weighted and T2-FLAIR images. Axial DWI and ADC mapping sequences were also obtained along with coronal heavily T2-weighted images were obtained. FINDINGS: Small acute cortical and subcortical infarcts in the right posterior frontal lobe. One sma ll focus is in the centrum semiovale. No acute intracranial hemorrhage. No mass effect or midline calvin ft. Grossly normal flow voids. Paranasal sinuses and mastoids are clear. Cerebral atrophy. IMPRESSION: Small foci of cortical and subcortical acute infarcts in the right frontal lobe.
[2021-10-28] MEDS ORDERED: ACETAMINOPHEN 500 MG TAB PO PRN (13:29)
[2021-10-28] MEDS ORDERED: ONDANSETRON 4 MG/2 ML VIAL IV PRN (13:29)
--- NOTE | 2021-10-28 13:40 | EDPHYS ---
Physician Documentation [facility] Name: Jozef Serrano Age: 76 yrs Sex: Male : 1945 Arrival Date: 10/28/2021 Time: 10:51 Bed 20 Private MD: Guillermo Ward ED Physician Norberto Gillis HPI: 10/28 11:05 This 76 yrs old Male presents to ER via Ambulatory with complaints of Numbness jr8 Of Arm - weakness. 11:05 Onset: The symptoms/episode began/occurred 1 hour(s) ago. This is a 76-year-old male jr8 patient that presented to the emergency room with complaints of left arm heaviness and numbness. Patient stated that it started while he was finishing up his morning walk. Noticed that it became heavy while walking and then when he sat in his car could hardly reach up to get to the steering well. Patient stated that the symptoms lasted for several minutes but has since been rapidly subsiding. Upon arrival to emergency room patient stated that he has had complete resolution of the weakness and almost all numbness has completely subsided. Denies any other symptoms at this time.. Historical: - Allergies: 11:01 No Known Allergies; jl7 - Home Meds: 11:01 finasteride oral [Active]; Metformin Oral [Active]; levothyroxine oral [Active]; jl7 - PMHx: 11:01 Diabetes mellitus; BPH; Hypothyroidism; jl7 - PSHx: 11:01 None; jl7 - Immunization history:: Client reports receiving the 2nd dose of the Covid vaccine, Moderna. - Social history:: Smoking status: Patient denies any tobacco usage or history of. ROS: 11:05 Eyes: Negative for injury, pain, redness, and discharge, ENT: Negative for injury, jr8 pain, and discharge, Neck: Negative for injury, pain, and swelling, Cardiovascular: Negative for chest pain, palpitations, and edema, Respiratory: Negative for shortness of breath, cough, wheezing, and pleuritic chest pain, Abdomen/GI: Negative for abdominal pain, nausea, vomiting, diarrhea, and constipation, Back: Negative for injury and pain, MS/Extremity: Negative for injury and deformity, Skin: Negative for injury, rash, and discoloration. 11:05 Neuro: Positive for weakness. Exam: 11:05 Constitutional: This is a well developed, well nourished patient who is awake, alert, jr8 and in no acute distress. Eyes: Pupils equal round and reactive to light, extra-ocular motions intact. Lids and lashes normal. Conjunctiva and sclera are non-icteric and not injected. Cornea within normal limits. Periorbital areas with no swelling, redness, or edema. ENT: Nares patent. No nasal discharge, no septal abnormalities noted. Tympanic membranes are normal and external auditory canals are clear. Oropharynx with no redness, swelling, or masses, exudates, or evidence of obstruction, uvula midline. Mucous membranes moist. Neck: Trachea midline, no thyromegaly or masses palpated, and no cervical lymphadenopathy. Supple, full range of motion without nuchal rigidity, or vertebral point tenderness. No Meningismus. Cardiovascular: Regular rate and rhythm with a normal S1 and S2. No gallops, murmurs, or rubs. Normal PMI, no JVD. No pulse deficits. Respiratory: Lungs have equal breath sounds bilaterally, clear to auscultation and percussion. No rales, rhonchi or wheezes noted. No increased work of breathing, no retractions or nasal flaring. Abdomen/GI: Soft, non-tender, with normal bowel sounds. No distension or tympany. No guarding or rebound. No evidence of tenderness throughout. Back: No spinal tenderness. No costovertebral tenderness. Full range of motion. Skin: Warm, dry with normal turgor. Normal color with no rashes, no lesions, and no evidence of cellulitis. MS/ Extremity: Pulses equal, no cyanosis. Neurovascular intact. Full, normal range of motion. Neuro: Awake and alert, GCS 15, oriented to person, place, time, and situation. Cranial nerves II-XII grossly intact. Motor strength 5/5 in all extremities. Sensory grossly intact. Cerebellar exam normal. Normal gait. Vital Signs: 10:59 Resp 71; Temp 97.5; Pulse Ox 99% ; Weight 96.16 kg; Height 5 ft. 10 in. (177.80 cm); jl7 Pain 0/10; 11:33 BP 115 / 95; Pulse 60; Resp 17; Pulse Ox 100% ; Pain 0/10; eo2 12:00 BP 143 / 70; Pulse 79; Resp 18; Pulse Ox 100% ; eo2 14:00 BP 139 / 62; Pulse 60; Resp 15; Pulse Ox 100% ; Pain 0/10; eo2 15:00 BP 142 / 71; Pulse 61; Resp 18; Pulse Ox 100% ; eo2 16:00 BP 123 / 66; Pulse 55; Resp 14; Pulse Ox 97% ; Pain 0/10; eo2 17:00 BP 139 / 72; Pulse 62; Resp 14; Temp 98.3; Pulse Ox 100% ; Pain 0/10; eo2 18:00 BP 148 / 70; Pulse 58; Resp 17; Pulse Ox 99% ; Pain 0/10; eo2 20:13 BP 132 / 62; Pulse 57; Resp 15; Pulse Ox 96% on R/A; kd3 10:59 Body Mass Index 30.42 (96.16 kg, 177.80 cm) jl7 NIH Stroke Scale Scores: 11:05 NIHSS Score: 0 jr8 11:33 NIHSS Score: 0 eo2 Chante Coma Score: 11:33 Eye Response: spontaneous(4). Verbal Response: oriented(5). Motor Response: obeys eo2 commands(6). Total: 15. MDM: 11:04 Patient medically screened. jr8 11:05 Data reviewed: vital signs, nurses notes, lab test result(s), EKG, radiologic studies, jr8 CT scan, plain films. Data interpreted: Pulse oximetry: on room air is 100 %. Interpretation: normal. Counseling: I had a detailed discussion with the patient and/or guardian regarding: the historical points, exam findings, and any diagnostic results supporting the discharge/admit diagnosis, lab results, radiology results, the need for further work-up and treatment in the hospital. ED course: Due to patient having rapid resolution of symptoms with NIH of 0 upon arrival tPA is not considered appropriate at this time.. 10/28 11:03 Order name: Basic Metabolic Panel; Complete Time: 12:10 10/28 11:03 Order name: CBC with Diff; Complete Time: 12:10 10/28 11:03 Order name: Magnesium; Complete Time: 12:10 10/28 11:03 Order name: Protime (+inr); Complete Time: 12:10 10/28 11:03 Order name: Ptt, Activated; Complete Time: 12:10 10/28 11:03 Order name: Troponin High Sensitivity; Complete Time: 12:10 jr8 10/28 11:24 Order name: Glucose, Ancillary Testing; Complete Time: 12:10 EDMS 10/28 11:24 Order name: Glucose, Ancillary Testing; Complete Time: 12:10 EDMS 10/28 13:31 Order name: COVID-19 SARS RT PCR (Document "Date of Onset" if Symptomatic); Complete [facility] Time: 16:56 10/28 13:34 Order name: Comprehensive Metabolic Panel EDMS 10/28 13:34 Order name: Comprehensive Metabolic Panel EDMS 10/28 13:34 Order name: Lipid Profile EDMS 10/28 13:34 Order name: Lipid Profile EDMS 10/28 13:34 Order name: Magnesium EDMS 10/28 11:03 Order name: CT Stroke Brain w/o Contrast; Complete Time: 11:23 8 10/28 11:03 Order name: Stroke CXR 1 View; Complete Time: 12:10 8 10/28 11:03 Order name: EKG; Complete Time: 11:04 8 10/28 12:11 Order name: CT Head Angio; Complete Time: 12:52 8 10/28 12:11 Order name: CT Neck Angio; Complete Time: 12:52 8 10/28 12:11 Order name: MRI - Brain Wo Cont; Complete Time: 13:27 8 10/28 13:34 Order name: Magnesium EDMS 10/28 13:34 Order name: Phosphorus EDMS 10/28 13:34 Order name: Phosphorus EDMS 10/28 13:34 Order name: Echo with Doppler EDMS 10/28 13:34 Order name: CBC with Automated Diff EDMS 10/28 13:34 Order name: CBC with Automated Diff EDMS 10/28 11:03 Order name: Accucheck; Complete Time: 11:19 8 10/28 11:03 Order name: Cardiac monitoring; Complete Time: :10/28 11:03 Order name: EKG - Nurse/Tech; Complete Time: :10/28 11:03 Order name: IV Saline Lock; Complete Time: :8 10/28 11:03 Order name: Labs collected and sent; Complete Time: :8 10/28 11:03 Order name: NPO; Complete Time: 11:19 jr8 10/28 11:03 Order name: O2 Per Protocol; Complete Time: 11: 8 10/28 11:03 Order name: O2 Sat Monitoring; Complete Time: 11: 8 10/28 11:03 Order name: Stroke Swallow Screen; Complete Time: 20:13 jr8 10/28 13:33 Order name: NPO; Complete Time: 16:31 EDMS 10/28 13:34 Order name: Physical Therapy Consult EDWI 10/28 13:34 Order name: NPO; Complete Time: 16:31 EDMS 10/28 13:34 Order name: NPO; Complete Time: 16:31 EDMS 10/28 13:34 Order name: EKG Electrocardiogram; Complete Time: 16:31 EDWI 10/28 13:35 Order name: Speech Therapy Consult EDMS Administered Medications: 13:00 Drug: Aspirin 81 mg Route: PO; eo2 14:00 Follow up: Response: No adverse reaction eo2 13:00 Drug: PlaVIX (clopidogrel) 75 mg Route: PO; eo2 14:00 Follow up: Response: No adverse reaction eo2 14:47 Drug: foLIC Acid 1 mg {Note: mixed in NS 50ML.} Route: IVPB; Site: right antecubital; eo2 15:05 Follow up: IV Status: Completed infusion; IV Intake: 50ml eo2 Disposition Summary: 10/28/21 13:39 Hospitalization Ordered Hospitalization Status: Observation [facility] Provider: Gabriela Goodrich [facility] Condition: Stable [facility] Problem: new [facility] Symptoms: have improved [facility] Bed/Room Type: Standard [facility] Room Assignment: 205(10/28/21 16:39) Diagnosis - Cerebral infarction, unspecified [facility] Forms: - Medication Reconciliation Form jr8 - SBAR form [facility] NIH Stroke Scale - NIH Stroke Score Date: 10/28/2021 Time: 11:05 Total Score = 0 1a. Level of Consciousness (LOC) - 0(Alert) 1b. Level of Consciousness (LOC) (Month \\T\\ Age) - 0(Both) 1c. LOC Commands (Open \\T\\ Closes Eyes/Timber Skidder) - 0(Both) 2. Best Gaze (Lateral Gaze Paresis) - 0(Normal) 3. Visual Field Loss - 0(No visual loss) 4. Facial Palsy - 0(Normal) 5a. Left Arm: Motor (10-second hold) - 0(No drift) 5b. Right Arm: Motor (10-second hold) - 0(No drift) 6a. Left Leg: Motor (5-second hold - always test supine) - 0(No drift) 6b. Right Leg: Motor (5-second hold - always test supine) - 0(No drift) 7. Limb Ataxia (finger/nose \\T\\ heel/pisano - test with eyes open) - 0(Absent) 8. Sensory Loss (pinprick arms/legs/face) - 0(Normal) 9. Best Language: Aphasia (description/naming/reading) - 0(No aphasia) 10. Dysarthria (speech clarity - read or repeat words) - 0(Normal) 11. Extinction and Inattention (visual/tactile/auditory/spatial/personal) - 0(No abnormality) Initials: jr8 NIH Stroke Scale - NIH Stroke Score Date: 10/28/2021 Time: 11:33 Total Score = 0 1a. Level of Consciousness (LOC) - 0(Alert) 1b. Level of Consciousness (LOC) (Month \\T\\ Age) - 0(Both) 1c. LOC Commands (Open \\T\\ Closes Eyes/Timber Skidder) - 0(Both) 2. Best Gaze (Lateral Gaze Paresis) - 0(Normal) 3. Visual Field Loss - 0(No visual loss) 4. Facial Palsy - 0(Normal) 5a. Left Arm: Motor (10-second hold) - 0(No drift) 5b. Right Arm: Motor (10-second hold) - 0(No drift) 6a. Left Leg: Motor (5-second hold - always test supine) - 0(No drift) 6b. Right Leg: Motor (5-second hold - always test supine) - 0(No drift) 7. Limb Ataxia (finger/nose \\T\\ heel/pisano - test with eyes open) - 0(Absent) 8. Sensory Loss (pinprick arms/legs/face) - 0(Normal) 9. Best Language: Aphasia (description/naming/reading) - 0(No aphasia) 10. Dysarthria (speech clarity - read or repeat words) - 0(Normal) 11. Extinction and Inattention (visual/tactile/auditory/spatial/personal) - 0(No abnormality) Initials: eo2 Addendum: 11/03/2021 21:10 Co-signature as Attending Physician, Norberto Gillis MD. rn 21:10 I agree with the assessment and plan of care. Attestation: The patient's rn history, exam findings, diagnostics, and a summary of any interventions or procedures was reviewed in detail with Art JEWELL. Signatures: Dispatcher [employer] [facility] Rosenda Beach RN RN dw Norberto Gillis MD MD rn Roszak, Josh, PA PA jr8 Tamara Haider RN RN jl7 Lianne Tucker RN RN eo2 Corrections: (The following items were deleted from the chart) 10/28 13:38 13:35 Chest Pa And Lat (2 Views) ordered. [facility] 16:39 13:39 jr8 dw
--- NOTE | 2021-10-28 13:40 | ER ---
Nurse's Notes [facility] Name: Jozef Serrano Age: 76 yrs Sex: Male : 1945 Arrival Date: 10/28/2021 Time: 10:51 Bed 20 Private MD: Guillermo Ward Diagnosis: Cerebral infarction, unspecified Presentation: 10/28 10:59 Chief complaint: Chief complaint: Patient states: Left arm went numb about 0945, has jl7 gotten better but it still feels real heavy. Coronavirus screen: At this time, the client does not indicate any symptoms associated with coronavirus-19. Ebola Screen: No symptoms or risks identified at this time. Initial Sepsis Screen: Does the patient meet any 2 criteria? No. Patient's initial sepsis screen is negative. Does the patient have a suspected source of infection? No. Patient's initial sepsis screen is negative. Risk Assessment: Do you want to hurt yourself or someone else? Patient reports no desire to harm self or others. Onset of symptoms was October 28, 2021 at 09:45. 10:59 Method [facility] Arrival: [facility] 10:59 Acuity: CATRACHO 2 jl7 Triage Assessment: 11:01 General: Appears in no apparent distress. uncomfortable, Behavior is calm, cooperative, jl7 appropriate for age. Pain: Denies pain. Historical: - Allergies: 11:01 No Known Allergies; jl7 - Home Meds: 11:01 finasteride oral [Active]; Metformin Oral [Active]; levothyroxine oral [Active]; jl7 - PMHx: 11:01 Diabetes mellitus; BPH; Hypothyroidism; jl7 - PSHx: 11:01 None; jl7 - Immunization history:: Client reports receiving the 2nd dose of the Covid vaccine, Moderna. - Social history:: Smoking status: Patient denies any tobacco usage or history of. Screenin:33 Abuse screen: Denies threats or abuse. Denies injuries from another. Nutritional eo2 screening: No deficits noted. Tuberculosis screening: No symptoms or risk factors identified. Fall Risk None identified. Assessment: 11:03 Reassessment: Pt transported to [place] via wheelchair with SHANDA Fung. jl7 11:30 General: Appears in no apparent distress. comfortable, Behavior is calm, cooperative. eo2 Pain: Denies pain. Neuro: No deficits noted. Level of Consciousness is awake, alert, obeys commands, Oriented to person, place, time, situation, Weakness hand(s) Pt reports left arm numbness and weakness onset this morning after his morning walk around 0940, reports symptoms are improving at this time. Cardiovascular: No deficits noted. Denies chest pain, shortness of breath, Heart tones S1 S2 Capillary refill < 3 seconds Rhythm is sinus rhythm. Respiratory: No deficits noted. Airway is patent Respiratory effort is even, unlabored, Respiratory pattern is regular, symmetrical, Breath sounds are clear bilaterally. GI: No deficits noted. No signs and/or symptoms were reported involving the gastrointestinal system. : No deficits noted. No signs and/or symptoms were reported regarding the genitourinary system. Musculoskeletal: Reports weakness in LUE. 18:15 Reassessment: 3rd attempt to call report on pt, receiving RN unable to take report at eo2 this time. 20:14 Reassessment: Patient and/or family updated on plan of care and expected duration. Pain kd3 level reassessed. Patient is alert, oriented x 3, equal unlabored respirations, skin warm/dry/pink. Patient denies pain at this time. Vital Signs: 10:59 Resp 71; Temp 97.5; Pulse Ox 99% ; Weight 96.16 kg; Height 5 ft. 10 in. (177.80 cm); jl7 Pain 0/10; 11:33 BP 115 / 95; Pulse 60; Resp 17; Pulse Ox 100% ; Pain 0/10; eo2 12:00 BP 143 / 70; Pulse 79; Resp 18; Pulse Ox 100% ; eo2 14:00 BP 139 / 62; Pulse 60; Resp 15; Pulse Ox 100% ; Pain 0/10; eo2 15:00 BP 142 / 71; Pulse 61; Resp 18; Pulse Ox 100% ; eo2 16:00 BP 123 / 66; Pulse 55; Resp 14; Pulse Ox 97% ; Pain 0/10; eo2 17:00 BP 139 / 72; Pulse 62; Resp 14; Temp 98.3; Pulse Ox 100% ; Pain 0/10; eo2 18:00 BP 148 / 70; Pulse 58; Resp 17; Pulse Ox 99% ; Pain 0/10; eo2 20:13 BP 132 / 62; Pulse 57; Resp 15; Pulse Ox 96% on R/A; kd3 10:59 Body Mass Index 30.42 (96.16 kg, 177.80 cm) jl7 Vitals: 11:33 Cardiac Rhythm Assessment Regular Sinus rhythm. eo2 [place] Coma Score: 11:33 Eye Response: spontaneous(4). Verbal Response: oriented(5). Motor Response: obeys eo2 commands(6). Total: 15. NIH Stroke Scale Scores: 11:05 NIHSS Score: 0 jr8 11:33 NIHSS Score: 0 eo2 ED Course: 10:51 Patient arrived in ED. am2 10:51 Guillermo Ward MD is Private Physician. am2 11:01 Triage completed. jl7 11:01 Arm band placed on right wrist. Patient placed in a wheelchair, to CT. jl7 11:03 Art Hernandez PA is PHCP. jr8 11:03 Norberto Gillis MD is Attending Physician. jr8 11:08 CT Stroke Brain w/o Contrast In Process Unspecified. EDMS 11:29 Lianne Tucker, SHANDA is Primary Nurse. eo2 11:32 Stroke CXR 1 View In Process Unspecified. EDMS 11:33 Patient has correct armband on for positive identification. residential monitor on. Pulse eo2 ox on. NIBP on. Door closed. Warm blanket given. 11:33 No provider procedures requiring assistance completed. Inserted saline lock: 18 gauge eo2 in right antecubital area, using aseptic technique. Blood collected. 12:34 CT Head Angio In Process Unspecified. EDMS 12:35 CT Neck Angio In Process Unspecified. EDMS 12:47 MRI - Brain Wo Cont In Process Unspecified. EDMS 13:39 Gabriela Goodrich MD is Hospitalizing Provider. jr8 15:44 COVID swab sent to lab. lt3 15:45 COVID-19 SARS RT PCR (Document "Date of Onset" if Symptomatic) Sent. lt3 19:04 Report given to Yasmine LAND. eo2 Administered Medications: 13:00 Drug: Aspirin 81 mg Route: PO; eo2 14:00 Follow up: Response: No adverse reaction eo2 13:00 Drug: PlaVIX (clopidogrel) 75 mg Route: PO; eo2 14:00 Follow up: Response: No adverse reaction eo2 14:47 Drug: foLIC Acid 1 mg {Note: mixed in NS 50ML.} Route: IVPB; Site: right antecubital; eo2 15:05 Follow up: IV Status: Completed infusion; IV Intake: 50ml eo2 Intake: 15:05 IV: 50ml; Total: 50ml. eo2 Outcome: 13:39 Decision to Hospitalize by Provider. jr8 20:24 Patient left the ED. kd3 NIH Stroke Scale - NIH Stroke Score Date: 10/28/2021 Time: 11:05 Total Score = 0 1a. Level of Consciousness (LOC) - 0(Alert) 1b. Level of Consciousness (LOC) (Month \\T\\ Age) - 0(Both) 1c. LOC Commands (Open \\T\\ Closes Eyes/Tinner Automatic) - 0(Both) 2. Best Gaze (Lateral Gaze Paresis) - 0(Normal) 3. Visual Field Loss - 0(No visual loss) 4. Facial Palsy - 0(Normal) 5a. Left Arm: Motor (10-second hold) - 0(No drift) 5b. Right Arm: Motor (10-second hold) - 0(No drift) 6a. Left Leg: Motor (5-second hold - always test supine) - 0(No drift) 6b. Right Leg: Motor (5-second hold - always test supine) - 0(No drift) 7. Limb Ataxia (finger/nose \\T\\ heel/pisano - test with eyes open) - 0(Absent) 8. Sensory Loss (pinprick arms/legs/face) - 0(Normal) 9. Best Language: Aphasia (description/naming/reading) - 0(No aphasia) 10. Dysarthria (speech clarity - read or repeat words) - 0(Normal) 11. Extinction and Inattention (visual/tactile/auditory/spatial/personal) - 0(No abnormality) Initials: jr8 NIH Stroke Scale - NIH Stroke Score Date: 10/28/2021 Time: 11:33 Total Score = 0 1a. Level of Consciousness (LOC) - 0(Alert) 1b. Level of Consciousness (LOC) (Month \\T\\ Age) - 0(Both) 1c. LOC Commands (Open \\T\\ Closes Eyes/Tinner Automatic) - 0(Both) 2. Best Gaze (Lateral Gaze Paresis) - 0(Normal) 3. Visual Field Loss - 0(No visual loss) 4. Facial Palsy - 0(Normal) 5a. Left Arm: Motor (10-second hold) - 0(No drift) 5b. Right Arm: Motor (10-second hold) - 0(No drift) 6a. Left Leg: Motor (5-second hold - always test supine) - 0(No drift) 6b. Right Leg: Motor (5-second hold - always test supine) - 0(No drift) 7. Limb Ataxia (finger/nose \\T\\ heel/pisano - test with eyes open) - 0(Absent) 8. Sensory Loss (pinprick arms/legs/face) - 0(Normal) 9. Best Language: Aphasia (description/naming/reading) - 0(No aphasia) 10. Dysarthria (speech clarity - read or repeat words) - 0(Normal) 11. Extinction and Inattention (visual/tactile/auditory/spatial/personal) - 0(No abnormality) Initials: eo2 Signatures: Dispatcher [employer] EDArt Alexander PA PA jr8 Tamara Haider RN RN jl7 Griselda Monroe am2 Yasmine Fish RN RN kd3 Marcie Rico 3 Lianne Tucker RN RN eo2
[2021-10-28] MEDS ORDERED: FOLIC ACID 5 MG/ML VIAL ONE (14:13)
[2021-10-28] MEDS ORDERED: NA CHLORIDE 0.9% 50 ML ONE (14:43)
[2021-10-28] MEDS ORDERED: NA CHLORIDE 0.9% 1,000 ML ONE (16:46)
[2021-10-28] MEDS ORDERED: ENOXAPARIN 40 MG/0.4 ML SQ ONE (16:46)
[2021-10-28] MEDS: ENOXAPARIN 40 MG/0.4 ML SQ SCH (16:51)
[2021-10-28] MEDS: NA CHLORIDE 0.9% 1,000 ML IV SCH (16:52)
[2021-10-28] MEDS: ATORVASTATIN 80 MG TAB PO SCH (20:54)
[2021-10-28 21:23] VITALS: BMI 29.7
[2021-10-28 23:29] LABS: Urine Appearance CLEAR (Clear); Urine Bilirubin NEGATIVE (Negative); Urine Blood NEGATIVE (Negative); Urine Color YELLOW (Yellow); Urine Glucose NEGATIVE (Negative); Urine Protein NEGATIVE (Negative); Urine Specific Gravity >=1.030 (1.005-1.030); Urine pH 6.5 (5.0-7.0)
[2021-10-29 00:06] LABS: Urine Bacteria <20 /HPF (NONE SEEN); Urine RBC NONE SEEN /HPF (NONE SEEN)
[2021-10-29] MEDS: ATORVASTATIN 80 MG TAB PO SCH (02:05)
[2021-10-29 06:40] LABS: Absolute Lymphocytes (CBC) 1.1 K/uL (0.7-4.9); Hematocrit 41.1 % (39.6-49.0); Lymphocytes % 24.7 % (15.3-44.8); MPV 7.7 fL (7.6-11.3); RBC Red Blood Cell Count 4.39 M/uL (4.33-5.43)
[2021-10-29] MEDS: NA CHLORIDE 0.9% 1,000 ML IV SCH (06:51)
[2021-10-29 07:17] LABS: ALT/SGPT 29 U/L (12-78); AST/SGOT 24 U/L (15-37); Alkaline Phosphatase 65 U/L (45-117); BUN Blood Urea Nitrogen 11 mg/dL (7-18); Bicarbonate 26 mmol/L (21-32); Glucose Level 103 mg/dL (74-106); HDL Cholesterol 37 mg/dL (40-60); LDL Cholesterol, Calculated 71 (<130); Magnesium 2.1 mg/dL (1.8-2.4); Phosphorus 3.1 mg/dL (2.5-4.9); Potassium 3.8 mmol/L (3.5-5.1); Protein, Total 6.7 g/dL (6.4-8.2); Sodium Level 139 mmol/L (136-145)
[2021-10-29] MEDS: ENOXAPARIN 40 MG/0.4 ML SQ SCH (08:44)
[2021-10-29] MEDS ORDERED: POTASSIUM CL SA 10 MEQ TAB PO ONE (09:00)
[2021-10-29] MEDS ORDERED: ASPIRIN EC 81 MG TAB PO SCH (09:00)
[2021-10-29] MEDS ORDERED: CLOPIDOGREL 75 MG TABLET PO SCH (09:00)
[2021-10-29 12:38] VITALS: BP 141/65; TEMP 97.9
[2021-10-29 14:39] VITALS: O2SAT 97
--- NOTE | 2021-10-30 08:20 | ECHO ---
HEIGHT: 5 ft 11 in WEIGHT: 213 lb 9.6 oz DATE OF STUDY: 10/28/[address]: Gabriela Goodrich MD 2-DIMENSIONAL: YES M.MODE: YES DOPPLER: YES COLOR FLOW: YES TDS: YES PORTABLE: NO DEFINITY: NO BUBBLE STUDY: NO DIAGNOSIS: STROKE CARDIAC HISTORY: CATHERIZATION: NO SURGERY: NO PROSTHETIC VALVE: NO PACEMAKER: NO MEASUREMENTS (cm) DIASTOLIC (NORMALS) SYSTOLIC (NORMALS) IVSd 1.1 (0.6-1.2) LA Diam 2.6 (1.9-4.0) LVEF 54% LVIDd 4.8 (3.5-5.7) LVIDs 3.4 (2.0-3.5) %FS 28% LVPWd 1.2 (0.6-1.2) Ao Diam 3.0 (2.0-3.7) 2 DIMENSIONAL ASSESSMENT: RIGHT ATRIUM: LEFT ATRIUM: RIGHT VENTRICLE: LEFT VENTRICLE: TRICUSPID VALVE: MITRAL VALVE: PULMONIC VALVE: AORTIC VALVE: PERICARDIAL EFFUSION: AORTIC ROOT: LEFT VENTRICULAR WALL MOTION: DOPPLER/COLOR FLOW: COMMENTS: VERY LIMITED WINDOWS. LEFT VENTRICULAR EJECTION FRACTION APPEARS NORMAL. TECHNOLOGIST: Obed ADAIR
--- NOTE | 2021-11-09 20:17 | P.HP ---
Certification for Inpatient Patient admitted to: Inpatient With expected LOS: >2 Midnights Patient will require the following post-hospital care: None Practitioner: I am a practitioner with admitting privileges, knowledge of patient current condition, hospital course, and medical plan of care. Services: Services provided to patient in accordance with Admission requirements found in Title 42 Section 412.3 of the Code of Federal Regulations Patient History Date of Service: 10/28/21 Reason for admission: Acute CVA History of Present Illness: Patient is a 76-year-old gentleman who came to the hospital with numbness of the left arm. Patient also has some heaviness. This started when he was finishing up his morning walk. Pt said he said his arm became heavy while walking in when he got to the car he could not control the steering wheel. His symptoms lasted for about half an hr. By the time he arrived to the emergency room his symptoms had resolved. Patient be admitted for TIA/CVA workup. Allergies ketamine Adverse Reaction (Verified 10/28/21 21:02) hallucinations morphine Adverse Reaction (Verified 10/28/21 21:02) Nausea/Vomiting Home Medications: Finasteride 5 mg PO DAILY 03/25/20 Levothyroxine [Synthroid*] 112 mcg PO [id number] 03/25/20 Metformin HCl [Glucophage*] 500 mg PO BID 03/25/20 Aspirin [Aspirin EC 81 MG] 162 mg PO DAILY #30 tablet. 10/29/21 Clopidogrel Bisulfate [Plavix*] 75 mg PO DAILY #30 tablet 10/29/21 Rosuvastatin Calcium 10 mg PO DAILY #30 tablet 10/29/21 - Past Medical/Surgical History Has patient received pneumonia vaccine in the past: No Diabetic: Yes -: diabetes -: prostate problem -: left shoulder pin -: bilateral knee replacement -: right leg sx - Family History Father Family History: Reviewed- Non-Contributory - Social History Smoking Status: Never smoker Alcohol use: Yes CD- Drugs: No Caffeine use: Yes Place of Residence: Home Review of Systems 10-point ROS is otherwise unremarkable Physical Examination - Vital Signs Temperature: 97.9 F Blood Pressure: 141/65 Pulse: 54 Respirations: 18 Pulse Ox (%): 97 - Physical Exam General: Alert, In no apparent distress, Oriented x3 HEENT: Atraumatic, PERRLA, Mucous membr. moist/pink, EOMI, Sclerae nonicteric Neck: Supple, 2+ carotid pulse no bruit, No LAD, Without JVD or thyroid abnormality Respiratory: Clear to auscultation bilaterally, Normal air movement Cardiovascular: Regular rate/rhythm, Normal S1 S2 Gastrointestinal: Normal bowel sounds, No tenderness Musculoskeletal: No tenderness Integumentary: No rashes Neurological: Normal gait, Normal speech, Normal strength at 5/5 x4 extr, Normal tone, Normal affect Lymphatics: No axilla or inguinal lymphadenopathy Assessment & Plan - Problems (Diagnosis) (1) Acute CVA (cerebrovascular accident) Status: Acute - Plan 1. Physical therapy evaluation 2. Speech therapy evaluation 3. Anti-platelet therapy and statin therapy 4. Lipid profile in the morning 5. MRI of the brain revealed a small foci of cortical and subcortical acute infarcts in the right frontal lob 6. Physically patient is doing well and may benefit more from outpatient physical therapy and inpatient rehab 7. Neurology consultation 8. Permissive hypertension and gradual blood pressure control 9. Neuro checks every 4 hr 10. GI and DVT prophylaxis Discharge Plan: Home Plan to discharge in: Greater than 2 days - Advance Directives Does patient have a Living Will: Yes Does patient have a Durable POA for Healthcare: Yes - Code Status/Comfort Care Code Status Assessed: Yes Code Status: Full Code Critical Care: No Time Spent Managing PTS Care (In Minutes): 45
--- NOTE | 2021-11-09 20:18 | P.DS ---
Discharge Date: 10/29/21 Disposition: ROUTINE DISCHARGE Discharge Condition: GOOD Reason for Admission: Acute CVA - Problems (1) Acute CVA (cerebrovascular accident) Status: Acute Brief History of Present Illness: Patient is a 76-year-old gentleman who came to the hospital with numbness of the left arm. Patient also has some heaviness. This started when he was finishing up his morning walk. Pt said he said his arm became heavy while walking in when he got to the car he could not control the steering wheel. His symptoms lasted for about half an hr. By the time he arrived to the emergency room his symptoms had resolved. Patient be admitted for TIA/CVA workup. Hospital Course: Patient has done well during hospital stay. Patient's clinical symptoms are improved. At this time, patient is stable for discharge home. Vital Signs/Physical Exam: Temp Pulse Resp BP Pulse Ox 97.9 F 54 18 141/65 H 97 11/09/21 20:16 11/09/21 20:16 11/09/21 20:16 11/09/21 20:16 11/09/21 20:16 General: Alert, In no apparent distress, Oriented x3 Laboratory Data at Discharge: WBC 4.40 K/uL (4.3-10.9) 10/29/21 06:03 Hgb 13.8 g/dL (13.6-17.9) 10/29/21 06:03 Hct 41.1 % (39.6-49.0) 10/29/21 06:03 Plt Count 156 K/uL (152-406) 10/29/21 06:03 PT 11.6 SECONDS (9.5-12.5) 10/28/21 11:20 INR 1.01 10/28/21 11:20 APTT 33.7 SECONDS (24.3-36.9) 10/28/21 11:20 Sodium 139 mmol/L (136-145) 10/29/21 06:03 Potassium 3.8 mmol/L (3.5-5.1) 10/29/21 06:03 BUN 11 mg/dL (7-18) 10/29/21 06:03 Creatinine 0.61 mg/dL (0.55-1.3) 10/29/21 06:03 Glucose 103 mg/dL (74-106) 10/29/21 06:03 Phosphorus 3.1 mg/dL (2.5-4.9) 10/29/21 06:03 Magnesium 2.1 mg/dL (1.8-2.4) 10/29/21 06:03 Total Bilirubin 1.0 mg/dL (0.2-1.0) 10/29/21 06:03 AST 24 U/L (15-37) 10/29/21 06:03 ALT 29 U/L (12-78) 10/29/21 06:03 Alkaline Phosphatase 65 U/L (45-117) 10/29/21 06:03 Triglycerides 94 mg/dL (<150) 10/29/21 06:03 Cholesterol 127 mg/dL (<200) 10/29/21 06:03 HDL Cholesterol 37 mg/dL (40-60) L 10/29/21 06:03 Cholesterol/HDL Ratio 3.43 10/29/21 06:03 Home Medications: Finasteride 5 mg PO DAILY 03/25/20 Levothyroxine [Synthroid*] 112 mcg PO [id number] 03/25/20 Metformin HCl [Glucophage*] 500 mg PO BID 03/25/20 Aspirin [Aspirin EC 81 MG] 162 mg PO DAILY #30 tablet. 10/29/21 Clopidogrel Bisulfate [Plavix*] 75 mg PO DAILY #30 tablet 10/29/21 Rosuvastatin Calcium 10 mg PO DAILY #30 tablet 10/29/21 New Medications: Aspirin [Aspirin EC 81 MG] 162 mg PO DAILY #30 tablet. Clopidogrel Bisulfate [Plavix*] 75 mg PO DAILY #30 tablet Rosuvastatin Calcium 10 mg PO DAILY #30 tablet Physician Discharge Instructions: -DC IV and DC home -Follow-up with PCP in 1 to 2 weeks -Follow-up with Neurology in 1 to 2 weeks -Please call Dr. Goodrich at [phone] if any questions regarding hospital stay -Please call nursing station at [phone] if any nursing or medication questions -Return to the emergency room if symptoms worsen Diet: AHA Activity: Fall precautions Followup: Caleb Johnson MD [ASSOCIATE-ACTIVE - CAN ADMIT] - Guillermo Ward MD [Primary Care Provider] - Time spent managing pt's care (in minutes): 35
== END 2021-10-29 15:56 | disposition home or self-care (01) | DRG 66 ==
LOC: ER 10:50 → ERHOLD 13:29 → 2ND 17:32
PROVIDERS: ADMIT Hospitalist; ATTEND Hospitalist
DX: I63.9 Cerebral infarction, unspecified (principal); R20.2 Paresthesia of skin; E11.9 Type 2 diabetes mellitus without complications; Z96.653 Presence of artificial knee joint, bilateral; N40.0 Benign prostatic hyperplasia without lower urinary tract symptoms; E03.9 Hypothyroidism, unspecified; Z20.822 Contact with and (suspected) exposure to COVID-19
CPT/HCPCS: 36415; 70450; 70496; 70498; 70551; 71045; 80048; 80053; 80061; 81001; 82947; 83735; 84100; 84484; 85025; 85610; 85730; 93005; 93306; 96365; 97110; 97116; 97161; 99284; J1650; J7030; Q9967; U0003

== ENCOUNTER 2022-03-22 07:30 | Emergency (ER) | payer OTHER, MEDICARE ==
--- OUTSIDE RECORDS SUMMARY | 2022-03-22 07:33 | XMS REPORT | Continuity of Care Document ---
:1945 Author Organization [facility] t Address [address] [place] [address] Care Team Providers Name Role Phone Sylvia GALEANA Primary Care Physician ENMANUEL MOORE Attending Clinician Unavailable ERIN Attending Clinician Unavailable Hitesh MOORE Attending Clinician Unavailable Hitesh Moore MD Attending Clinician ENMANUEL MOORE Admitting Clinician Unavailable Payers Payer Name Policy Type Policy Number Effective Date Expiration Date S ashley MEDICARE PART A \T\ [id number] B - MEDICARE [facility] MEDICARE [id number] SUPPLEMENT PLAN - [facility] MEDICARE A B [id number] 2012 00:00:[address] [facility] [id number] 2019 HEALTHCARE 00:00:00 UNITED MEDICARE HMO [id number] 2019 00:00:00 Problems Condition Condition Condition Status Onset Resolution Last Treating Co mments Source Name Details Category Date Date Treatment Clinician Date BPH BPH Disease Active 2010-10 [facility] (benign (benign 1-14 College prostatic prostatic 00:00: of hyperplasi hyperplasi 00 Me dicin a) a) e Hypertroph Hypertroph Disease Active 2010-10 [facility] y of y of 0-17 College prostate prostate 00:00: of with with 00 Medicin urinary urinary e obstructio obstructio n and n and other other lower lower urinary urinary tract tract symptoms symptoms (LUTS) (LUTS) Elevated Elevated Disease Active 2010-10 Rad r prostate prostate 0-17 Colleg e specific specific 00:00: of antigen antigen 00 Medicin (PSA) (PSA) e Allergies, Adverse Reactions, Alerts Allergy Allergy Status Severity Reaction(s) Onset Inactive Treating Comm ents Source Name Type Date Date Clinician KETAMINE [facility]ergy [facility] MORPHINE Allergy Active N\T\V [facility] Ketamine Propensi Active hallucina [place] [facility] to [facility]06 [facility] College adverse 00:00: of reaction 00 Medicin s to e drug Morphine Propensi Active Nausea And [facility] to Vomiting 05-06 College adverse 00:00: of reaction 00 Medicin s to e drug NO KNOWN Allergy Active [facility] Social History Social Habit Start Date Stop Date Quantity Comments Source History [facility] ge Alcohol Frequency of Medi cine History [facility] ge Alcohol Std Drinks of Med icine History [facility] Alcohol Binge of Medicine Alcohol intake 2021-06-09 2021-06-09 .29 /d [facility] Col lege 00:00:00 00:00:00 of Medicine Alcohol Comment 2011-11-29 2011-11-29 social drinker [facility] 00:00:00 00:00:00 of Medicine Tobacco use and 2011-08-02 2011-08-02 Smokeless tobacco [facility] exposure 00:00:00 00:00:00 non-user of Medicine Sex [birth year] [facility] 00:00:00 00:00:00 of Medicine Smoking Status Start Date Stop Date Source Never smoked tobacco [facility] of Medicine Medications Ordered Filled Start Stop Current Ordering Indication Dosage Frequency Signature Comments Components Source Medication Medication Date Date Medication? Clinician (SIG) Name Name finasteride 2020-10 Yes [id number] Take 1 [facility] (PROSCAR) 5 0-11 tablet by Col lege MG tablet 00:00: mouth once of 00 daily Medicin e finasteride 2020-10 Yes [id number] Take 1 [facility] (PROSCAR) 5 0-11 tablet by Col lege MG tablet 00:00: mouth once of 00 daily Medicin e ciprofloxac Yes [id number] 500mg Take 1 [facility] in (CIPRO) 8-27 Tablet by Shahid ege 500 MG 00:00: mouth two of tablet 00 times Medicin daily. e finasteride Yes [id number] 5mg Take 1 [facility] (PROSCAR) 5 8-24 Tablet by Col lege MG tablet 00:00: mouth of 00 daily. Medicin e meloxicam Yes [id number] 7.5mg Take 1 [facility] (MOBIC) 7.5 8-24 Tablet by Col lege MG tablet 00:00: mouth of 00 daily. Medicin e meloxicam Yes [id number] 7.5mg Take 1 [facility] (MOBIC) 7.5 8-24 Tablet by Col lege MG tablet 00:00: mouth of 00 daily. Medicin e finasteride 2020- No [id number] Take 1 [facility] (PROSCAR) 5 6-11 08-24 tablet by Co llege MG tablet 00:00: 00:00 mouth once o f 00 :00 daily Medicin e amoxicillin 2019-10 Yes [id number] 1{tbl} Take 1 [facility] -clavulanat 2-07 Tablet by Col lege e 00:00: mouth two of (AUGMENTIN) 00 times Medicin 875-125 MG daily. e per tablet metformin 2019-10- No 500mg Take 500 [facility] (GLUCOPHAGE 11-17 mg by Ada coles ) 500 MG 16:04: 00:00 mouth. of tablet 17 :00 Medicin e levothyroxi 2019-10 2020- No 112ug Take 112 [facility] ne 11-17 mcg by [facility] (SYNTHROID) 16:04: 00:00 mouth. of 112 MCG 11 :00 Medicin tablet e finasteride 2019-10 2020- No 5mg Take 5 mg [facility] (PROSCAR) 5 2- 12 by mouth. Co llege MG tablet 16:04: 00:00 of 04 :00 Medicin e meloxicam 2019-10 Yes [id number] 7.5mg Take 1 [facility] (MOBIC) 7.5 2-01 Tablet by Col lege MG tablet 00:00: mouth of 00 daily. Medicin e sulfamethox 2019-10 Yes [id number] 1{tbl} Take 1 [facility] azole-trime 2-01 Tablet by Col lege thoprim 00:00: mouth two of (BACTRIM 00 times Medicin DS) 800-160 daily. e MG per tablet meloxicam 2019- Yes [id number] 7.5mg Take 1 [facility] (MOBIC) 7.5 2-01 Tablet by Col lege MG tablet 00:00: mouth of 00 daily. Medicin e sulfamethox 2019- Yes [id number] 1{tbl} Take 1 [facility] azole-trime 2-01 Tablet by Col lege thoprim 00:00: mouth two of (BACTRIM 00 times Medicin DS) 800-160 daily. e MG per tablet finasteride 2019-0 Yes [id number] TAKE 1 [facility] (PROSCAR) 5 5-14 TABLET BY Col lege MG tablet 00:00: MOUTH ONCE of 00 DAILY Medicin e finasteride 2019-0 Yes [id number] TAKE 1 [facility] (PROSCAR) 5 5-14 TABLET BY Col lege MG tablet 00:00: MOUTH ONCE of 00 DAILY Medicin e finasteride 2019- Yes [id number] TAKE 1 [facility] (PROSCAR) 5 5-14 TABLET BY Col lege MG tablet 00:00: MOUTH ONCE of 00 DAILY Medicin e aspirin 81 2019-0 2020- No 81mg Take 81 mg [facility] MG tablet 3-10 03-10 by mouth Colle ge 20:39: 00:00 daily. of 29 :00 Medicin e finasteride 2019-0 Yes [id number] TAKE 1 [facility] (PROSCAR) 5 2-18 TABLET BY Col lege MG tablet 00:00: MOUTH ONCE of 00 DAILY Medicin e amoxicillin 2018- 2020- No 1{tbl} Take 1 Tab [facility] -clavulanat 7-15 03-10 by mouth Col lege e 00:00: 00:00 two times of (AUGMENTIN) 00 :00 daily. Medici n 875-125 MG e per tablet levothyroxi Yes TAKE 1 [facility] 6-06 TABLET BY [facility] (SYNTHROID) 00:00: MOUTH ONCE of 112 MCG 00 DAILY Medicin tablet e levothyroxi Yes TAKE 1 [facility] 6-06 TABLET BY [facility] (SYNTHROID) 00:00: MOUTH ONCE of 112 MCG 00 DAILY Medicin tablet e levothyroxi Yes TAKE 1 [facility] 6-06 TABLET BY [facility] (SYNTHROID) 00:00: MOUTH ONCE of 112 MCG 00 DAILY Medicin tablet e levothyroxi Yes TAKE 1 [facility] 6-06 TABLET BY College (SYNTHROID) 00:00: MOUTH ONCE of 112 MCG 00 DAILY Medicin tablet e levothyroxi Yes TAKE 1 [facility] 6-06 TABLET BY College (SYNTHROID) 00:00: MOUTH ONCE of 112 MCG 00 DAILY Medicin tablet e levothyroxi Yes TAKE 1 [facility] 6-06 TABLET BY [facility] [employer] (SYNTHROID) 00:00: MOUTH ONCE of 112 MCG 00 DAILY Medicin tablet e levofloxaci 2020- No [facility] 03[facility]05 [facility] 00:[facility]: 00:00 of 500 MG 00 :00 Medicin tablet e tobramycin- 2020- No [facility] dexamethaso 512-24 [facility] ne 00:00: 00:00 of (TOBRADEX) 00 :00 Medicin 0.3-0.1 % e ophthalmic solution metformin 2017-0 Yes [facility] (GLUCOPHAGE 1-04 [facility] ) 500 MG 00:00: of tablet 00 Medicin e metformin 2017-0 Yes [facility] (GLUCOPHAGE 1-04 [facility] ) 500 MG 00:00: of tablet 00 Medicin e metformin 2017-0 Yes [facility] (GLUCOPHAGE 1-04 [facility] ) 500 MG 00:00: of tablet 00 Medicin e metformin 2017-0 Yes [facility] (GLUCOPHAGE 1-04 [facility] ) 500 MG 00:00: of tablet 00 Medicin e metformin 2017-0 Yes [facility] (GLUCOPHAGE 1-04 [facility] ) 500 MG 00:00: of tablet 00 Medicin e metformin 2017-0 Yes [facility] (GLUCOPHAGE 1-04 [facility] ) 500 MG 00:00: of tablet 00 Medicin e levothyroxi 2020- No [facility] 07-14 [facility] (SYNTHROID) 00:00: 00:00 of 100 MCG 00 :00 Medicin tablet e Vital Signs Vital Name Observation Time Observation Value Comments Source HEIGHT 2020-03-13 00:00:00 180.3 cm WEIGHT 2020-03-13 00:00:00 96.752 kg Systolic blood 2021-06-09 19:20:00 137 mm[Hg] [facility] College of pressure Medicine Diastolic blood 2021-06-09 19:20:00 79 mm[Hg] [facility] pressure Medicine Heart rate 2021-06-09 19:20:00 60 /min [facility] Respiratory rate 2021-06-09 19:20:00 17 /min [facility] Body height 2021-06-09 19:20:00 180.3 cm [facility] Body weight 2021-06-09 19:20:00 [facility]616 [facility] BMI 2021-06-09 19:20:00 29.71 kg/m2 [facility] Systolic blood 2020-10-28 15:49:00 162 mm[Hg] [facility] pressure Medicine Diastolic blood 2020-10-28 15:49:00 82 mm[Hg] [facility] Heart rate 2020-10-28 15:49:00 54 /min [facility] Body temperature 2020-10-28 15:49:00 36.94 Aimee [facility] Systolic blood 2020-09-16 16:02:00 137 mm[Hg] [facility] pressure Medicine Diastolic blood 2020-09-16 16:02:00 73 mm[Hg] [facility] pressure Medicine Heart rate 2020-09-16 16:02:00 52 /min [facility] Body height 2020-09-16 16:02:00 180.3 cm [facility] Body weight 2020-09-16 16:02:00 96.616 [facility] BMI 2020-09-16 16:02:00 29.71 kg/m2 [facility] Systolic blood 2020-06-06 20:17:00 138 mm[Hg] [facility] pressure Medicine Diastolic blood 2020-06-06 20:17:00 71 mm[Hg] [facility] pressure Medicine Heart rate 2020-06-06 20:17:00 58 /min [facility] ol[facility] of Medicine Systolic blood 2020-06-06 20:17:00 138 mm[Hg] [facility] pressure Medicine Diastolic blood 2020-06-06 20:17:00 71 mm[Hg] [employer] [facility] pressure Medicine Heart rate 2020-06-06 20:17:00 58 /min [facility] ol[facility] of Medicine HEIGHT 2020-03-13 00:00:00 180.3 cm WEIGHT 2020-03-13 00:00:00 96.752 kg HEIGHT 2020-05-03 00:00:00 180.3 cm WEIGHT 2020-05-03 00:00:00 98.476 kg HEIGHT 2020-05-03 00:00:00 180.3 cm WEIGHT 2020-05-03 00:00:00 98.476 kg Systolic blood 2019-12-25 20:38:00 141 mm[Hg] [facility] pressure Medicine Diastolic blood 2019-12-25 20:38:00 72 mm[Hg] [facility] pressure Medicine Heart rate 2019-12-25 20:38:00 56 /min [facility] Body temperature 2019-12-25 20:38:00 36.44 Aimee [facility] Body height 2019-12-25 20:38:00 177.8 cm [facility] Body weight 2019-12-25 20:38:00 96.163 kg [facility] BMI 2019-12-25 20:38:00 30.42 kg[facility]m2 [facility] Systolic blood 2019-12-25 20:38:00 141 mm[Hg] [facility] pressure Medicine Diastolic blood 2019-12-25 20:38:00 72 mm[Hg] [facility] Heart rate 2019-12-25 20:38:00 56 /min [facility] Body temperature 2019-12-25 20:38:00 36.44 Aimee [facility] Body height 2019-12-25 20:38:00 177.8 cm [facility] Body weight 2019-12-25 20:38:00 96.163 kg [facility] BMI 2019-12-25 20:38:00 30.42 kg[facility]m2 [facility] Procedures Procedure Date / Time Performed Performing Clinician Sourc e POCT URINALYSIS 2021-06-09 00:00:00 Donell oMore [facility] DIPSTICK Medicine LACEY,POST-VOID 2021-06-09 00:00:00 Donell Moore [facility],,NON-IMG Medicine POCT URINALYSIS 2020-10-28 00:00:00 Donell Moore [facility] DIPSTICK Medicine LACEY,POST-VOID 2020-10-28 00:00:00 Donell Moore [facility],,NON-IMG Medicine LACEY,POST-VOID 2020-06-06 20:34:00 Donell Moore [facility],NON-IMG Medicine POCT URINALYSIS 2019-12-25 00:00:00 Donell Moore [facility] DIPSTICK Medicine LACEY,POST-VOID 2019-12-25 00:00:00 Donell Moore [facility],NON-IMG Medicine Plan of Care Planned Activity Planned Date Details Comments Source Future Scheduled 2021-12-08 Screening for [facility] Col [facility]ge Test 12:21:38 malignant neoplasm of Medici ne of colon (procedure) [code = 339015047] Future Scheduled 2021-12-08 TETANUS SHOT (ADULT) [employer] [employer] Test 12:21:38 [code = TETANUS SHOT of Medi cine (ADULT)] Future Scheduled 2021-12-08 BMI FOLLOW UP PLAN [employer] Test 12:21:38 [code = BMI FOLLOW of Medici ne UP PLAN] Future Scheduled 2021-12-08 Hepatitis C [facility] Test 12:21:38 screening of Medicine (procedure) [code = 556749314] Future Scheduled 2021-12-08 ZOSTER VACCINE (1 of [place] [employer] Test 12:21:38 2) [code = ZOSTER of Medicin e VACCINE (1 of 2)] Future Scheduled 2021-12-08 FALL SCREEN [code = [facility] [facility] [employer] Test 12:21:38 FALL SCREEN] of Medicine Future Scheduled 2021-12-08 Pneumococcal 65+ (1 [employer] Test 12:21:38 of 1 - PPSV23) [code of Medi cine = Pneumococcal 65+ (1 of 1 - PPSV23)] Future Scheduled 2021-12-08 MEDICARE AWV [facility] Test 12:21:38 (Initial) [code = of Medicin e MEDICARE AWV (Initial)] Future Scheduled 2021-12-08 FLU VACCINE > 6 [facility] C [facility]lege Test 12:21:38 MONTHS [code = FLU of Medici ne VACCINE > 6 MONTHS] Future Scheduled 2021-06-09 CULTURE, Ordered: [facility] Test 14:33:34 URINE/SENSITIVITY ON 06/09/2021 of Medi cine ALL [code = 52715-7] Future Scheduled 2021-06-09 URINALYSIS AUTO 6 Occurrences [facility] Test 14:33:34 W/SCOPE [code = starting of Medicine 10694-1] 06/09/2021 until 06/09/2022 Future Scheduled 2021-06-09 Screening for [facility] Col [facility]ge Test 14:19:07 malignant neoplasm of Medici ne of colon (procedure) [code = 911430356] Future Scheduled 2021-06-09 TETANUS SHOT (ADULT) [facility] Test 14:19:07 [code = TETANUS SHOT of Medi cine (ADULT)] Future Scheduled 2021-06-09 BMI FOLLOW UP PLAN [facility] Test 14:19:07 [code = BMI FOLLOW of Medici ne UP PLAN] Future Scheduled 2021-06-09 Hepatitis C [facility] ege Test 14:19:07 screening of Medicine (procedure) [code = 443490302] Future Scheduled 2021-06-09 ZOSTER VACCINE (1 of [facility] Test 14:19:07 2) [code = ZOSTER of Medicin e VACCINE (1 of 2)] Future Scheduled 2021-06-09 MEDICARE AWV [facility] ege Test 14:19:07 (Initial) [code = of Medicin e MEDICARE AWV (Initial)] Future Scheduled 2021-06-09 FALL SCREEN [code = [facility] Test 14:19:07 FALL SCREEN] of Medicine Future Scheduled 2021-06-09 PNEUMOVAX >=65 [facility] Test 14:19:07 (PPSV23) [code = of Medicine PNEUMOVAX >=65 (PPSV23)] Future Scheduled 2021-06-09 FLU VACCINE > 6 [facility] C [facility]lege Test 14:19:07 MONTHS [code = FLU of Medici ne VACCINE > 6 MONTHS] Future Scheduled COLON CANCER [facility] Test SCREENING: of Medicine COLONOSCOPY [code = COLON CANCER SCREENING: COLONOSCOPY] Future Scheduled COVID-19 Vaccine [employer] [employer] Test Evaluation [code = of Medici ne COVID-19 Vaccine Evaluation] Future Scheduled TETANUS SHOT (ADULT) [employer] [employer] Test [code = TETANUS SHOT of Medi cine (ADULT)] Future Scheduled BMI FOLLOW UP PLAN [employer] Test [code = BMI FOLLOW of Medici ne UP PLAN] Future Scheduled HEPATITIS C [facility] Test SCREENING [code = of Medicin e HEPATITIS C SCREENING] Future Scheduled ZOSTER VACCINE (1 of [place] [employer] Test 2) [code = ZOSTER of Medicin e VACCINE (1 of 2)] Future Scheduled MEDICARE AWV [facility] Test (Initial) [code [...] > 6 MONTHS] Future Scheduled COLON CANCER [facility] Test SCREENING: of Medicine COLONOSCOPY [code = COLON CANCER SCREENING: COLONOSCOPY] Future Scheduled TETANUS SHOT (ADULT) [employer] [employer] Test [code = TETANUS SHOT of Medi cine (ADULT)] Future Scheduled BMI FOLLOW UP PLAN [employer] [employer] Test [code = BMI FOLLOW of Medici ne UP PLAN] Future Scheduled HEPATITIS C [facility] Test SCREENING [code [...] (Initial)] Future Scheduled FLU VACCINE > 6 [facility]lege Test MONTHS [code = FLU of Medici ne VACCINE > 6 MONTHS] Future Scheduled COLON CANCER [facility] Test SCREENING: of Medicine COLONOSCOPY [code = COLON CANCER SCREENING: COLONOSCOPY] Future Scheduled TETANUS SHOT (ADULT) [employer] [employer] Test [code = TETANUS SHOT of Medi cine (ADULT)] Future Scheduled BMI FOLLOW UP PLAN [employer] Test [code = BMI FOLLOW of Medici ne UP PLAN] Future Scheduled HEPATITIS C [facility] Test SCREENING [code = of Medicin e HEPATITIS C SCREENING] Future Scheduled ZOSTER VACCINE (1 of [place] [employer] Test 2) [code = ZOSTER of Medicin e VACCINE (1 of 2)] Future Scheduled MEDICARE AWV [facility] Test (Initial) [code = of Medicin e MEDICARE AWV (Initial)] Future Scheduled FALL SCREEN [code = [employer] Test FALL SCREEN] of Medicine Future Scheduled PNEUMOVAX >=65 [facility] Test (PPSV23) [code = of Medicine PNEUMOVAX >=65 (PPSV23)] Future Scheduled FLU VACCINE > 6 [facility] C [facility]lege Test MONTHS [code = FLU of Medici ne VACCINE > 6 MONTHS] Future Scheduled URINALYSIS AUTO Ordered: [facility] ollege Test W/SCOPE [code = 09/16/2020 of Medicine 08110-5] Future Scheduled CULTURE, Ordered: [facility] Test URINE/SENSITIVITY ON 09/16/2020 of Medi cine ALL [code = 85517-3] Future Scheduled COLON CANCER [facility] Test SCREENING: of Medicine COLONOSCOPY [code = COLON CANCER SCREENING: COLONOSCOPY] Future Scheduled TETANUS SHOT (ADULT) [employer] [employer] Test [code = TETANUS SHOT of Medi cine (ADULT)] Future Scheduled BMI FOLLOW UP PLAN [employer] Test [code = BMI FOLLOW of Medici ne UP PLAN] Future Scheduled HEPATITIS C [facility] Test SCREENING [code = of Medicin e HEPATITIS C SCREENING] Future Scheduled ZOSTER VACCINE (1 of [place] [employer] Test 2) [code = ZOSTER of Medicin e VACCINE (1 of 2)] Future Scheduled MEDICARE AWV [facility] Test (Initial) [code = of Medicin e MEDICARE AWV (Initial)] Future Scheduled FALL SCREEN [code = [employer] Test FALL SCREEN] of Medicine Future Scheduled PNEUMOVAX >=65 [facility] Test (PPSV23) [code = of Medicine PNEUMOVAX >=65 (PPSV23)] Future Scheduled FLU VACCINE > 6 [facility] C ollege Test MONTHS [code = FLU of Medici ne VACCINE > 6 MONTHS] Future Scheduled CYSTOSCOPY [code = 1 Occurrences [facility] Test 298061224] starting of Medicine 12/25/2019 until 12/24/2020 Future Scheduled US TRANSRECTAL [code 1 Occurrences Ba [facility] Test = 14625-6] starting of Medicine 12/25/2019 until 07/26/2020 Encounters Start End Encounter Admission Attending Care Care Encounter Source Date/Time Date/Time Type Type Clinicians Facility Department ID 2021-07-21 Outpatient CHANDRA MOORE Surgery [id number] [facility] 15:32:42 CHRISTOPHER 2021-12-17 2021-12-17 Outpatient ERIN [facility] [id number] [place] 00:00:00 00:00:00 VIOLETTE Federico [facility] 2021-12-08 2021-12-08 Office CONNIE MOORE [id number] [facility] 12:21:31 15:41:27 Visit CHRISTOPHER AMBULATOR [id number] College Y 0.2.7.2.686 of [id number] Medi gregg 300 e 2021-06-09 2021-06-09 Office CONNIE Moore [id number] [facility] 14:09:55 14:19:55 Visit Christopher AMBULATOR [id number] College P Y 0.2.7.2.686 of [id number] Medi gregg 300 e 2020-10-28 2020-10-28 Office CONNIE Moore [id number] [facility] 09:04:29 09:14:29 Visit Christopher AMBULATOR [id number] College P Y 0.2.7.2.686 of [id number] Medi gregg 300 e 2020-09-16 2020-09-16 Office CONNIE Moore [id number] [facility] 09:21:02 11:37:31 Visit Christopher AMBULATOR [id number] College P Y 0.2.7.2.686 of [id number] Medi gregg 300 e 2020-06-06 2020-06-06 Office CONNIE Moore [id number] 14:45:52 15:36:35 Visit Christopher AMBULATOR [id number] P Y 0.2.7.2.686 [id number] 300 2020-06-06 2020-06-06 [facility] CONNIE Moore [id number] [facility] 14:45:52 15:36:35 Visit Christopher AMBULATOR [id number] College P Y 0.2.7.2.686 of [id number] [facility] 300 e 2020-05-06 2020-05-06 Outpatient [facility] [id number] [facility] 00:00:00 00:00:00 2020-05-05 2020-05-05 Outpatient [facility] [id number] [facility] 00:00:00 00:00:00 2020-05-03 2020-05-03 Outpatient [facility] [id number] [facility] 00:00:00 00:00:00 2020-05-03 2020-05-03 Outpatient [facility] SLE [id number] [facility] 00:00:00 00:00:00 2019-12-25 2019-12-25 FERNANDA Meneses [id number] 14:28:27 16:08:26 Visit Christopher AMBULATOR [id number] P Y 0.2.7.2.686 [id number] 300 2019-12-25 2019-12-25 FERNANDA Meneses [id number] [place] [address] 14:28:27 16:08:26 Visit Christopher AMBULATOR [id number] College P Y 0.2.7.2.686 of [id number] [facility] 300 e Results Test Description Test Time Test Comments Results Result Comments Source POCT URINALYSIS DIPSTICK 2021-06-09 00:00:00 Test Item Value Reference Range Interpretation Comme nts COLOR UA (test code = 5778-6) Yellow YELLOW/STRAW CLARITY UA (test code = 84166-1) Clear CLEAR GLUCOSE UA (test code = 5792-7) Negative NEGATIVE BILIRUBIN UA (test code = 5770-3) Negative NEGATIVE KETONES UA (test code = 40671-4) Negative NEGATIVE SPECIFIC GRAVITY UA (test code [...] NEGATIVE REDUCING SUBSTANCES URINE (test code = 33107-6) [facility],POST-VOID RES,,[id number] 00:00:00 Test Item Value Reference Range Interpretation Comments PVR (test code = 6116) [facility] [id number] 00:00:00 Test Item Value Reference Range Interpretation Comments COLOR UA (test code = 5778-6) Yellow YELLOW/STRAW CLARITY UA (test code = 66587-7) Clear CLEAR GLUCOSE UA (test code = 5792-7) Negative NEGATIVE BILIRUBIN UA (test code = 5770-3) Negative NEGATIVE KETONES UA (test code = 36332-1) Negative NEGATIVE SPECIFIC GRAVITY UA (test code [...] NEGATIVE REDUCING SUBSTANCES URINE (test code = 17143-8) Lab Interpretation (test code = Abnormal 06802-0) [facility],POST-VOID RES,,[id number] 00:00:00 Test Item Value Reference Range Interpretation Comments PVR (test code = 6116) cc/ml [facility],POST-VOID RES,,[id number] 20:34:00 Test Item Value Reference Range Interpretation Comments PVR (test code = 6116) [facility]ml [facility] [id number] 07:21:00 Test Item Value Reference Range Interpretation Comments POC-GLUCOSE METER 156 mg/dL 70-110 H : TESTED A T [facility] 6720 (REGINALDO) (test code [facility], = 1538) [address]: Client Account Manager/Techni celena ID = [id number] for CAROL NEILOMKARMICHELLE SARS-COV2/RT-PCR ([facility])2020-05-04 14:28:00 Test Item Value Reference Range Interpretation Comments SARS-COV2/RT-PCR (test code = Negative Not Detected, Negative [id number]) SARS-COV-2 PERFORMING LAB [facility] (test code = 4689973) Negative result for this test determines that [...] 564(g) of the Act.Fact Sheet for Healthcare Providers:https://www.[employer]inhotels.[employer]/sites/default/files/product/documents/Fact_Shee w_QU_Xsstsikpp_Jmry_WMHM-LgE-9.pdfFact Sheet for Healthcare Patients:https://www.[employer]hotels.[employer]/sites/default/files/product/ documents/Ayti_Xcjtr_Ybgvfiyl_Jnhm_TECU-ImV-0.pdfPerforming Laboratory:[facility], [place] [address]CKAFE CULTURE 2020-05-04 08:36:00 Test Item Value Reference Range Interpretation Comments CULTURE (BEAKER) (test 10-19,000 col/mL skin code = 1095) sander URINALYSIS W/ [id number] 10:16:00 Test Item Value Reference Range Interpretation [...] = 1584) SOURCE(BEAKER) (test code = 2795) Client Account Manager ID - [auto]Client Account Manager ID - techBASIC METABOLIC [id number] 10:00:00 Test Item Value Reference Range Interpretation [...] S NOT APPLICABLE FOR DIALYSIS PATIEN TS. Client Account Manager ID - MANJIT CCBC W/PLT COUNT & AUTO [id number] 09:44:00 Test Item Value Reference Range Interpretation [...] (BEAKER) (test code = 2801) POCT URINALYSIS [id number] 00:00:00 Test Item Value Reference Range Interpretation Comments COLOR UA (test code = 5778-6) Yellow YELLOW/STRAW CLARITY UA (test code = 15126-0) Clear CLEAR GLUCOSE UA (test code = 5792-7) Negative NEGATIVE BILIRUBIN UA (test code = 5770-3) Negative NEGATIVE KETONES UA (test code = 91154-1) Negative NEGATIVE SPECIFIC GRAVITY UA (test code [...] NEGATIVE REDUCING SUBSTANCES URINE (test code = 34415-9) [facility],US,[id number] 00:00:00 Test Item Value Reference Range Interpretation Comments PVR (test code = 6116) cc/ml [facility]
[2022-03-22 08:02] LABS: Absolute Lymphocytes (CBC) 1.2 K/uL (0.7-4.9); Hematocrit 42.1 % (39.6-49.0); Lymphocytes % 20.4 % (15.3-44.8); MPV 7.9 fL (7.6-11.3); RBC Red Blood Cell Count 4.61 M/uL (4.33-5.43)
--- NOTE | 2022-03-22 08:30 | RAD REPORT ---
EXAM DESCRIPTION: RAD - Chest Single View - 03/22/2022 8:25 am CLINICAL HISTORY: CHEST PAIN Chest pain. COMPARISON: Chest Single View dated 10/28/2021; Chest Pa And Lat (2 Views) dated 03/25/2020 FINDINGS: Portable technique limits examination quality. The lungs are grossly clear. The heart is normal in size. No displaced fractures. IMPRESSION: No acute intrathoracic process suspected.
[2022-03-22 08:32] LABS: Platelet Estimate ADEQ; White Blood Cell Scan OK (OK)
[2022-03-22 08:33] LABS: Blood Morphology Comment NOT SEEN (NOT SEEN); Platelets, Giant 2+
[2022-03-22 09:59] LABS: Potassium 4.5 mmol/L (3.5-5.1); Troponin High Sensitivity 4.1 pg/mL (<58.9)
--- NOTE | 2022-03-22 10:43 | ER ---
Nurse's Notes [facility] Name: Jozef Serrano Age: 76 yrs Sex: Male : 1945 Arrival Date: 03/22/2022 Time: 07:31 Bed 19 Private MD: Guillermo Ward Diagnosis: Chest pain, unspecified Presentation: 03/22 07:43 Chief complaint: Patient states: left sided chest pain since Tuesday. Coronavirus iw screen: At this time, the client does not indicate any symptoms associated with coronavirus-19. Ebola Screen: Patient negative for fever greater than or equal to 101.5 degrees Fahrenheit, and additional compatible Ebola Virus Disease symptoms Patient denies exposure to infectious person. Patient denies travel to an Ebola-affected area in the 21 days before illness onset. No symptoms or risks identified at this time. Initial Sepsis Screen: Does the patient meet any 2 criteria? No. Patient's initial sepsis screen is negative. Does the patient have a suspected source of infection? No. Patient's initial sepsis screen is negative. Risk Assessment: Do you want to hurt yourself or someone else? Patient reports no desire to harm self or others. Onset of symptoms was March 17, 2022. 07:43 Method Of Arrival: Wheelchair iw 07:43 Acuity: CATRACHO 3 iw Historical: - Allergies: 07:44 No Known Allergies; iw - Home Meds: 07:44 metformin 500 mg Oral tab 1 tab 2 times per day [Active]; finasteride 5 mg oral tab 1 iw tab once daily [Active]; levothyroxine 112 mcg tab 1 tab once daily [Active]; - PMHx: 07:44 diabetes mellitus; BPH; Hypothyroidism; iw - Immunization history:: Adult Immunizations unknown. - Social history:: Smoking status: Patient denies any tobacco usage or history of. - Family history:: not pertinent. - Hospitalizations: : Patient was recently seen at. Screenin:47 Abuse screen: Denies threats or abuse. Nutritional screening: No deficits noted. tw2 Tuberculosis screening: No symptoms or risk factors identified. Fall Risk None identified. Assessment: 07:46 Reassessment: provider at bedside at this time. tw2 08:02 General: Appears in no apparent distress. comfortable, Behavior is cooperative. Pain: iw Complains of pain in anterior aspect of left upper chest, xiphoid area, mid-sternal area and left breast Pain radiates to left arm Pain began 2-3 days ago. Neuro: Level of Consciousness is awake, alert, obeys commands, Oriented to person, place, time, situation, Moves all extremities. Speech is normal. Cardiovascular: Capillary refill < 3 seconds Patient's skin is warm and dry. Rhythm is regular. Respiratory: Airway is patent Respiratory effort is even, unlabored, Respiratory pattern is regular, symmetrical. GI: No signs and/or symptoms were reported involving the gastrointestinal system. : No signs and/or symptoms were reported regarding the genitourinary system. 09:13 Reassessment: Patient appears in no apparent distress at this time. No changes from iw previously documented assessment. Patient and/or family updated on plan of care and expected duration. Pain level reassessed. Patient is alert, oriented x 3, equal unlabored respirations, skin warm/dry/pink. 10:30 Reassessment: Patient appears in no apparent distress at this time. No changes from ww previously documented assessment. Patient and/or family updated on plan of care and expected duration. Pain level reassessed. Patient is alert, oriented x 3, equal unlabored respirations, skin warm/dry/pink. 11:18 Reassessment: Patient appears in no apparent distress at this time. No changes from ww previously documented assessment. Patient and/or family updated on plan of care and expected duration. Pain level reassessed. Patient is alert, oriented x 3, equal unlabored respirations, skin warm/dry/pink. Patient states feeling better. Vital Signs: 07:43 BP 125 / 60; Pulse 58; Resp 16; Temp 98.0; Pulse Ox 97% on R/A; iw 09:13 BP 128 / 61; Pulse 55; Resp 18; Pulse Ox 99% on R/A; iw 10:00 BP 123 / 60; Pulse 54; Resp 18; Pulse Ox 96% on R/A; ww 11:19 BP 129 / 66; Pulse 49; Resp 13; Pulse Ox 96% on R/A; ww ED Course: 07:31 Patient arrived in ED. am2 07:32 Guillermo Ward MD is Private Physician. am2 07:32 Norberto Gillis MD is Attending Physician. rn 07:44 Triage completed. iw 07:46 Arm band placed on. tw2 07:47 monitor car operator on. Pulse ox on. NIBP on. tw2 07:47 Bed in low position. Call light in reach. tw2 07:47 Patient maintains SpO2 saturation greater than 95% on room air. tw2 08:02 Warm blanket given. iw 08:02 Missed attempt(s): 20 gauge in right antecubital area. Bleeding controlled, band aid iw applied, catheter tip intact. 08:26 XRAY Chest (1 view) In Process Unspecified. EDMS 09:13 Tatianna Pereira, RN is Primary Nurse. iw 09:13 Inserted saline lock: 20 gauge in right antecubital area, using aseptic technique. tw2 Blood collected. 10:00 No provider procedures requiring assistance completed. IV discontinued, intact, ww bleeding controlled, No redness/swelling at site. Pressure dressing applied. Administered Medications: No medications were administered Medication: 08:02 VIS not applicable for this client. iw Outcome: 10:42 Discharge ordered by . rn 11:20 Discharged to home ambulatory, with family. ww 11:20 Condition: stable 11:20 Discharge instructions given to patient, significant other, Instructed on discharge instructions, follow up and referral plans. safety practices, Demonstrated understanding of instructions, follow-up care. 11:20 Patient left the ED. ww Signatures: Dispatcher [employer] Tatianna Mckeon, RN SHANDA Norberto Gillis MD MD rn Wise, Tara, RN RN tw2 Griselda Monroe Whitney, RN RN ww
--- NOTE | 2022-03-22 10:43 | EDPHYS ---
Physician Documentation [facility] Name: Jozef Serrano Age: 76 yrs Sex: Male : 1945 Arrival Date: 03/22/2022 Time: 07:31 Bed 19 Private MD: Guillermo Ward ED Physician Norberto Gillis HPI: 03/22 08:17 This 76 yrs old Male presents to ER via Wheelchair with complaints of Chest rn Pain. 08:17 The patient or guardian reports chest pain that is located primarily in the anterior rn chest wall, left. Onset: 2 day(s) ago. The pain radiates to the left arm, the left shoulder. Associated signs and symptoms: Pertinent positives: None. Pertinent negatives: abdominal pain, cough, diaphoresis, shortness of breath, syncope, vomiting. The chest pain is described as aching. Duration: The patient or guardian reports multiple episodes, that are intermittent. Modifying factors: The symptoms are alleviated by nothing. the symptoms are aggravated by nothing. Severity of pain: At its worst the pain was mild in the emergency department the pain is unchanged. The patient has not experienced similar symptoms in the past. The patient has been recently seen by a physician:. Pt reports left shoulder and arm pain/aching for a few days, almost 1 week, 2 days ago began with left upper/outer chest pain/aching, not assoc with sob/cough/diaphoresis. Not doing anything strenuous. No illness. No fever. No trauma. No cough. . Historical: - Allergies: 07:44 No Known Allergies; iw - Home Meds: 07:44 metformin 500 mg Oral tab 1 tab 2 times per day [Active]; finasteride 5 mg oral tab 1 iw tab once daily [Active]; levothyroxine 112 mcg tab 1 tab once daily [Active]; - PMHx: 07:44 diabetes mellitus; BPH; Hypothyroidism; iw - Immunization history:: Adult Immunizations unknown. - Social history:: Smoking status: Patient denies any tobacco usage or history of. - Family history:: not pertinent. - Hospitalizations: : Patient was recently seen at. ROS: 08:17 Constitutional: Negative for fever, chills, and weight loss, Eyes: Negative for injury, rn pain, redness, and discharge, Neck: Negative for injury, pain, and swelling, Cardiovascular: + left chest pain Respiratory: Negative for shortness of breath, cough, wheezing, and pleuritic chest pain, Abdomen/GI: Negative for abdominal pain, nausea, vomiting, diarrhea, and constipation, Back: Negative for injury and pain, MS/Extremity: + left shoulder and arm pain Skin: Negative for injury, rash, and discoloration, Neuro: Negative for headache, weakness, numbness, tingling, and seizure. Exam: 08:17 Constitutional: This is a well developed, well nourished patient who is awake, alert, rn and in no acute distress. Head/Face: Normocephalic, atraumatic. Eyes: Periorbital areas with no swelling, redness, or edema. Cardiovascular: Regular rate and rhythm. No pulse deficits. Upper ext pulses strong and equal. Respiratory: Speaking full sentences, unlabored. No increased work of breathing, no retractions or nasal flaring. Abdomen/GI: Soft, non-tender Skin: Warm, dry MS/ Extremity: Pulses equal, no cyanosis. Equal bilateral circumference. Neuro: Awake and alert, GCS 15, oriented to person, place, time, and situation. Cranial nerves II-XII grossly intact. Motor strength 5/5 in all extremities. Sensory grossly intact. Cerebellar exam normal. Vital Signs: 07:43 BP 125 / 60; Pulse 58; Resp 16; Temp 98.0; Pulse Ox 97% on R/A; iw 09:13 BP 128 / 61; Pulse 55; Resp 18; Pulse Ox 99% on R/A; iw 10:00 BP 123 / 60; Pulse 54; Resp 18; Pulse Ox 96% on R/A; ww 11:19 BP 129 / 66; Pulse 49; Resp 13; Pulse Ox 96% on R/A; ww MDM: 07:32 Patient medically screened. rn 10:40 Differential diagnosis: acute myocardial infarction, acute pericarditis, anxiety, rn coronary artery disease chest wall pain, gastroesophageal reflux disease (GERD), pleurisy, pneumothorax, muscular pain. Data reviewed: vital signs, nurses notes, lab test result(s), EKG, radiologic studies, plain films, and as a result, I will discharge patient. Counseling: I had a detailed discussion with the patient and/or guardian regarding: the historical points, exam findings, and any diagnostic results supporting the discharge/admit diagnosis, lab results, radiology results, the need for outpatient follow up, to return to the emergency department if symptoms worsen or persist or if there are any questions or concerns that arise at home. Special discussion: Based on the patient's history, exam, and Dx evaluation, there is no indication for emergent intervention or inpatient Tx. It is understood by the patient/guardian that if the Sx's persist or worsen they need to return immediately for re-evaluation. I discussed with the patient/guardian in detail that at this point there is no indication for admission to the hospital. It is understood, however, that if the symptoms persist or worsen the patient needs to return immediately for re-evaluation. Based on the history and exam findings, there is no indication for further emergent testing or inpatient evaluation. I discussed with the patient/guardian the need to see the primary care provider for further evaluation of the symptoms. ED course: No acute findings in blood/CXR/EKG, stable vitals. States has had this pain before due to muscular pains and sleeping wrong, but wanted to make sure wasn't his heart. Trop neg. No oxygen requirement. Pain constant for days and neg testing. Will dc home with pcp and cardiology f/u and return precautions.. 03/22 07:47 Order name: Basic Metabolic Panel; Complete Time: 10:26 rn 03/22 07:47 Order name: CBC with Diff; Complete Time: 08:42 rn 03/22 07:47 Order name: NT PRO-BNP; Complete Time: 10:26 rn 03/22 07:47 Order name: Troponin HS; Complete Time: 10:26 rn 03/22 07:47 Order name: XRAY Chest (1 view); Complete Time: 08:42 rn 03/22 08:33 Order name: CBC Smear Scan EDMD 03/22 07:47 Order name: EKG; Complete Time: 07:48 rn 03/22 07:47 Order name: Cardiac monitoring; Complete Time: 08:00 rn 03/22 07:47 Order name: EKG - Nurse/Tech; Complete Time: 08: rn 03/22 07:47 Order name: IV Saline Lock; Complete Time: 08: rn 03/22 07:47 Order name: Labs collected and sent; Complete Time: 08: rn 03/22 07:47 Order name: O2 Per Protocol; Complete Time: 08: rn 03/22 07:47 Order name: O2 Sat Monitoring; Complete Time: 08:01 rn 03/22 08:21 Order name: Labs - recollect needed: recollect light green tube; Complete Time: 09:13 bd Administered Medications: No medications were administered Disposition Summary: 03/22/22 10:42 Discharge Ordered Location: Home rn Problem: new rn Symptoms: have improved rn Condition: Stable rn Diagnosis - Chest pain, unspecified rn Followup: rn - With: Private Physician - When: As needed - Reason: Recheck today's complaints, Re-evaluation by your physician Discharge Instructions: - Discharge Summary Sheet rn - Nonspecific Chest Pain, Adult rn Forms: - Medication Reconciliation Form rn - Thank You Letter rn - Antibiotic utilization review rn - Prescription Opioid Use rn Signatures: Dispatcher [employer] Clare Calvin Irene, RN RN Norberto Diego MD MD rn
[2022-03-22 11:25] VITALS: TEMP 98
[2022-03-22 11:27] VITALS: O2SAT 96
[2022-03-22 11:28] VITALS: BP 129/66
--- NOTE | 2022-03-22 13:19 | EKG ---
Test Date: 2022-03-22 Test Time: 07:42:17 Section Hand: EULOGIO MEASUREMENT RESULTS: Intervals: Rate: 56 MO: 148 QRSD: 90 QT: 384 QTc: 370 [place]: P: 73 MO: 148 QRS: 51 T: 52 INTERPRETIVE STATEMENTS: Sinus bradycardia Possible Anterior infarct, age undetermined Abnormal ECG Compared to ECG 10/28/2021 11:22:46 Myocardial infarct finding now present Sinus rhythm no longer present Electronically Signed On 03-22-22 13:18:18 CDT by Samir Bob
--- NOTE | 2022-03-23 09:53 | EKG ---
Test Date: 2022-03-22 Test Time: 07:42:45 Combination Welder: EULOGIO MEASUREMENT RESULTS: Intervals: Rate: 53 PA: 148 QRSD: 96 QT: 390 QTc: 365 [place]: P: 64 PA: 148 QRS: 44 T: 33 INTERPRETIVE STATEMENTS: Sinus bradycardia Possible Anterior infarct, age undetermined Abnormal ECG Compared to ECG 03/22/2022 07:42:17 No significant changes Electronically Signed On 03-23-22 09:49:59 CDT by Jared Bee
== END 2022-03-22 11:20 | disposition home or self-care (01) ==
LOC: ER 07:30
DX: R07.9 Chest pain, unspecified (principal); E11.9 Type 2 diabetes mellitus without complications; E03.9 Hypothyroidism, unspecified
CPT/HCPCS: 36415; 71045; 80048; 83880; 84484; 85025; 93005; 99285

== ENCOUNTER 2025-01-20 06:09 | Emergency (ER) | payer OTHER, MEDICARE ==
[2025-01-20] MEDS ORDERED: ACETAMINOPHEN 500 MG TAB ONE (06:49)
[2025-01-20] MEDS ORDERED: ASPIRIN 81 MG CHEWABLE TABLET ONE (06:49)
[2025-01-20] MEDS ORDERED: Meropenem 1000 MG/VIAL IV ONE (06:49)
--- NOTE | 2025-01-20 06:49 | EDPHYS ---
Physician Documentation [facility] Jasmina Name: Jozef Serrano Age: 79 yrs Sex: Male : 1945 Arrival Date: 01/20/2025 Time: 06:09 Bed 18 Private MD: ED Physician Kody Hough HPI: 01/20 06:41 This 79 yrs old Male presents to ER via EMS with complaints of Fever. jovany 06:41 The patient reports fever, that was measured at 101 degrees Fahrenheit. Onset: The jovany symptoms/episode began/occurred 1 day(s) ago. Modifying factors: PROSTRATE SX. Associated signs and symptoms: Pertinent positives: chills, night sweats. Severity of symptoms: At their worst the symptoms were mild moderate in the emergency department the symptoms are unchanged. The patient has not experienced similar symptoms in the past. Historical: - Allergies: 06:27 KETAMINE; br2 06:27 Morphine; br2 - Immunization history:: Adult Immunizations not up to date. - Infectious Disease History:: Denies. - Social history:: Smoking status: Patient/guardian denies using tobacco, Patient uses alcohol, occasionally. ROS: 06:42 Eyes: Negative for injury, pain, redness, and discharge, ENT: Negative for injury, jovany pain, and discharge, Neck: Negative for injury, pain, and swelling, Cardiovascular: Negative for chest pain, palpitations, and edema, Respiratory: Negative for shortness of breath, cough, wheezing, and pleuritic chest pain, Back: Negative for injury and pain, : Negative for injury, bleeding, discharge, and swelling, MS/Extremity: Negative for injury and deformity, Skin: Negative for injury, rash, and discoloration, Neuro: Negative for headache, weakness, numbness, tingling, and seizure, Psych: Negative for depression, anxiety, suicide ideation, homicidal ideation, and hallucinations, Allergy/Immunology: Negative for hives, rash, and allergies, Endocrine: Negative for neck swelling, polydipsia, polyuria, polyphagia, and marked weight changes, Hematologic/Lymphatic: Negative for swollen nodes, abnormal bleeding, and unusual bruising, 06:42 Respiratory: Positive for cough, 06:42 Abdomen/GI: Positive for abdominal pain, 06:42 : Positive for pelvic pain, hematuria, burning with urination, difficulty urinating, Exam: 06:42 Head/Face: Normocephalic, atraumatic. Eyes: Pupils equal round and reactive to light, jovany extra-ocular motions intact. Lids and lashes normal. Conjunctiva and sclera are non-icteric and not injected. Cornea within normal limits. Periorbital areas with no swelling, redness, or edema. ENT: Nares patent. No nasal discharge, no septal abnormalities noted. Tympanic membranes are normal and external auditory canals are clear. Oropharynx with no redness, swelling, or masses, exudates, or evidence of obstruction, uvula midline. Mucous membranes moist. Neck: Trachea midline, no thyromegaly or masses palpated, and no cervical lymphadenopathy. Supple, full range of motion without nuchal rigidity, or vertebral point tenderness. No Meningismus. Chest/axilla: Normal chest wall appearance and motion. Nontender with no deformity. No lesions are appreciated. Respiratory: Lungs have equal breath sounds bilaterally, clear to auscultation and percussion. No rales, rhonchi or wheezes noted. No increased work of breathing, no retractions or nasal flaring. Back: No spinal tenderness. No costovertebral tenderness. Full range of motion. Skin: Warm, dry with normal turgor. Normal color with no rashes, no lesions, and no evidence of cellulitis. MS/ Extremity: Pulses equal, no cyanosis. Neurovascular intact. Full, normal range of motion., bilateral aka Neuro: Awake and alert, GCS 15, oriented to person, place, time, and situation. Cranial nerves II-XII grossly intact. Motor strength 5/5 in all extremities. Sensory grossly intact. Cerebellar exam normal. Normal gait. Psych: Awake, alert, with orientation to person, place and time. Behavior, mood, and affect are within normal limits. 06:42 Constitutional: The patient appears well developed, well groomed, febrile, obese, uncomfortable, 06:42 ECG was reviewed by the Attending Physician. 06:42 Abdomen/GI: Inspection: distension, that is mild, Bowel sounds: normal, Palpation: mild abdominal tenderness, in the suprapubic area, Hernia: not appreciated, Vital Signs: 06:19 BP 105 / 56; Pulse 103; Resp 18; Temp 98.7(TE); Pulse Ox 93% on R/A; Weight 90.72 kg; br2 Height 5 ft. 11 in. ; Pain 0/10; 06:45 BP 103 / 54; Pulse 98; Resp 18; Pulse Ox 94% ; vc1 07:46 BP 105 / 51; Pulse 80; Resp 18 S; Pulse Ox 100% on R/A; Pain 0/10; kc6 09:14 BP 112 / 50; Pulse 78; Resp 18 S; Pulse Ox 100% on R/A; kc6 06:19 Body Mass Index 27.89 (90.72 kg, 180.34 cm) br2 06:19 Pain Scale: Adult br2 07:46 Pain Scale: Adult kc6 MDM: 06:12 Medical Screening Exam initiated jovany 06:46 Differential diagnosis: nonspecific abdominal pain, appendicitis, UTI, urinary jovany retention, Rivers catheter problem, viral Infection, bacterial infection, URI, bronchitis, pneumonia UTI, gastroenteritis. Differential Diagnosis sepsis, flu. Data reviewed: vital signs, nurses notes, EMS record, lab test result(s), EKG, radiologic studies, CT scan, plain films. Consideration of Admission/Observation Escalation of care including admission/observation considered. I considered the following discharge prescriptions or medication management in the emergency department Medications were administered in the Emergency Department. See MAR. Independent interpretation of the following test(s) in the Emergency Department CT Scan: My interpretation is CT STONE. Test considered but Not performed: Ultrasound NO ABD USG. Historians other than the Patient: EMS: EMS WELL INFORMED. Care significantly affected by the following chronic conditions: Diabetes, Obesity, Cancer. 04 06:14 Order name: Basic Metabolic Panel; Complete Time: 07:10 [facility] 01/20 06:14 Order name: CBC with Diff; Complete Time: 07:59 [facility] 01/20 06:14 Order name: LFT's; Complete Time: 07:10 [facility] 01/20 06:14 Order name: Magnesium; Complete Time: 07:10 [facility] 01/20 06:14 Order name: NT PRO-BNP; Complete Time: 07:10 [facility] 01/20 06:14 Order name: PT-INR; Complete Time: 07:10 [facility] 01/20 06:14 Order name: Troponin HS; Complete Time: 07:10 [facility] 01/20 06:14 Order name: Lipase; Complete Time: 07:10 [facility] 01/20 06:14 Order name: Blood Culture Adult (2) jovany 01/20 06:14 Order name: Urinalysis w/ reflexes; Complete Time: 07:59 [facility] 01/20 06:14 Order name: Urine Culture [facility] 01/20 06:14 Order name: COVID-19 Ag + Flu A+B Ag; Complete Time: 07:41 [facility] 01/20 07:16 Order name: Manual Differential; Complete Time: 07:59 EDMS 04 06:14 Order name: XRAY Chest (1 view); Complete Time: 07:10 [facility] 01/20 06:21 Order name: CT Stone Protocol; Complete Time: 07:27 [facility] 01/20 06:14 Order name: Cardiac monitoring; Complete Time: 06:43 [facility] 01/20 06:14 Order name: EKG - Nurse/Tech; Complete Time: 06:43 [facility] 01/20 06:14 Order name: IV Saline Lock; Complete Time: 06:44 [facility] 01/20 06:14 Order name: Labs collected and sent; Complete Time: 06:44 [facility] 01/20 06:14 Order name: O2 Per Protocol; Complete Time: 06:44 [facility] 01/20 06:14 Order name: O2 Sat Monitoring; Complete Time: 06:44 [facility] 01/20 06:41 Order name: Misc. Order: IRRIGATE RIVERS; Complete Time: 07:17 [facility] EC:42 Rate is 97 beats/min. Rhythm is regular. QRS [place] is Normal. MO interval is normal. QRS jovany interval is normal. QT interval is normal. No Q waves. T waves are Normal. No ST changes noted. Clinical impression: Sinus tachycardia. Interpreted by me. Reviewed by me. Administered Medications: 07:02 Not Given (Patient Refused; took at homee): [id number] mg PO once vc1 07:17 Drug: Meropenem IV 1 grams IV at per protocol once; (mix in NS 100 mL) Route: IV; Rate: vc1 per protocol; Site: left antecubital; 07:44 Follow up: Response: No adverse reaction; IV Status: Completed infusion; IV Intake: kc6 100ml 07:17 Drug: NS 0.9% IV (30 ml/kg) 30 ml/kg IV at bolus once; Sepsis Protocol; to be given as vc1 a bolus over 90 minutes Route: IV; Rate: bolus; Site: left antecubital; 09:26 Follow up: Response: No adverse reaction; IV Status: Completed infusion kc6 07:17 Drug: Famotidine IVP 20 mg IVP once; dilute with 10 mL 0.9% NaCl; give over 2 minutes vc1 Route: IVP; Site: left antecubital; 07:44 Follow up: Response: No adverse reaction kc6 07:28 Not Given (Duplicate Order): aspirinchewable tablet 324 mg PO once; 81 mg tablets x 4 jovany 07:44 Drug: Magnesium Sulfate IVPB 1 grams IVPB once over 1 hrs Route: IVPB; Infused Over: 1 kc6 hrs; Site: left antecubital; 08:49 Follow up: Response: No adverse reaction; IV Status: Completed infusion; IV Intake: kc6 100ml 08:50 Drug: metroNIDAZOLE IVPB 500 mg 100 ml IVPB at 200 ml/hr once over 30 mins Volume: 100 kc6 ml; Route: IVPB; Rate: 200 ml/hr; Infused Over: 30 mins; Site: left antecubital; 09:25 Follow up: Response: No adverse reaction; IV Status: Infusion continued upon transfer; kc6 IV Intake: 100ml Disposition Summary: 01/20/25 06:48 Transfer Ordered Notes: Transfer Location: [facility] jovany Reason: Higher level of care jovany Condition: Fair jovany Problem: new jovany Symptoms: have improved jovany Accepting Physician: TO [facility](01/20/25 09:29) kc6 Diagnosis - UTI/ Urinary tract infection, site not specified jovany - Fever, unspecified jovany - Other mechanical complication of urinary (indwelling) catheter jovany - Leakage of urinary (indwelling) catheter jovany - Abdominal tenderness - SP TURP jovany - Abnormal findings on diagnostic imaging of other abdominal regions, including jovany retroperitoneum - DECENDING COLON MASS 4.7X4.2 Forms: - Medication Reconciliation Form jovany - SBAR form jovany Signatures: Dispatcher [employer] EDKody Ortega MD MD cha Patel, Setul, MD MD sp3 Elvi Wilhelm RN RN vc1 Faustina Christensen RN RN kc6 Alma Garcia RN RN br2 Corrections: (The following items were deleted from the chart) 06:15 06:15 BASIC METABOLIC PANEL+C.LAB.BRZ ordered. EDMS EDMS 06:15 06:15 CBC+H.LAB.BRZ ordered. EDMS EDMS 06:15 06:15 HEPATIC FUNCTION+C.LAB.BRZ ordered. EDMS EDMS 06:15 06:15 MAGNESIUM+C.LAB.BRZ ordered. EDMS EDMS 06:15 06:15 PROBNP+C.LAB.BRZ ordered. EDMS EDMS 06:15 06:15 PROTIME (+INR)+COAG.LAB.BRZ ordered. EDMS EDMS 06:15 06:15 Troponin High Sensitivity+C.LAB.BRZ ordered. EDMS EDMS 06:15 06:15 LIPASE+C.LAB.BRZ ordered. EDMS EDMS 06:15 06:15 BLOOD CULTURE*+BA.LAB.BRZ ordered. EDMS EDMS 06:15 06:15 Urinalysis+U.LAB.BRZ ordered. EDMS EDMS 06:15 06:15 Urine Culture+BA.LAB.BRZ ordered. EDMS EDMS 06:15 06:15 COVID-19 Ag + Flu A+B Ag+I.LAB.BRZ ordered. EDMS EDMS 06:15 06:15 Chest Single View+RAD.RAD.BRZ ordered. EDMS EDMS 07:32 06:[address] [facility] jovany jovany 09:29 07:[address] [facility] jovany kc6
--- NOTE | 2025-01-20 06:49 | ER ---
Nurse's Notes [facility] Jasmina Name: Jozef Serrano Age: 79 yrs Sex: Male : 1945 Arrival Date: 01/20/2025 Time: 06:09 Bed 18 Private MD: Diagnosis: UTI/ Urinary tract infection, site not specified;Fever, unspecified;Other mechanical complication of urinary (indwelling) catheter;Leakage of urinary (indwelling) catheter;Abdominal tenderness-SP TURP;Abnormal findings on diagnostic imaging of other abdominal regions, including retroperitoneum-DECENDING COLON MASS 4.7X4.2 Presentation: 01/20 06:19 Chief complaint: Patient states: S/P PROSTATE (TURP) SURGERY [facility]. PT br2 SENT HOME WITH RIVERS CATHETER. PT C/O PAIN WITH URINATION. 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 Coronavirus screen: Client denies travel out of the [place] in the last 14 days. Ebola Screen: Patient denies exposure to infectious person. Initial Sepsis Screen: Does the patient meet any 2 criteria? No. Patient's initial sepsis screen is negative. Does the patient have a suspected source of infection? No. Patient's initial sepsis screen is negative. Risk Assessment: Do you want to hurt yourself or someone else? Patient reports no desire to harm self or others. Onset of symptoms was January 19, 2025. 06:19 Method Of Arrival: EMS: [facility] br2 06:19 Acuity: CATRACHO 3 br2 Triage Assessment: 06:27 General: Appears in no apparent distress. comfortable, Behavior is calm, cooperative. br2 Pain: Denies pain. : Reports burning with urination, pain with urination. Historical: - Allergies: 06:27 KETAMINE; br2 06:27 Morphine; br2 - Immunization history:: Adult Immunizations not up to date. - Infectious Disease History:: Denies. - Social history:: Smoking status: Patient/guardian denies using tobacco, Patient uses alcohol, occasionally. Screenin:00 [facility] ED Fall Risk Assessment (Adult) History of falling in the last 3 months, kc6 including since admission No falls in past 3 months (0 pts) Confusion or Disorientation No (0 pts) Intoxicated or Sedated No (0 pts) Impaired Gait No (0 pts) Mobility Assist Device Used No (0 pt) Altered Elimination No (0 pt) Score/Fall Risk Level 0 - 2 = Low Risk Oriented to surroundings, Maintained a safe environment, Educated pt \T\ family on fall prevention, incl call for assistance when getting out of bed. Abuse screen: Denies threats or abuse. Denies injuries from another. Nutritional screening: No deficits noted. Tuberculosis screening: No symptoms or risk factors identified. Assessment: 06:58 General: Appears in no apparent distress. comfortable, well groomed, Behavior is calm, vc1 cooperative, appropriate for age. General: Reports chills for 0-12 hours, fever for. Pain: Denies pain. Neuro: Level of Consciousness is awake, alert, obeys commands, Oriented to person, place, time, situation, Appropriate for age. Cardiovascular: Heart tones S1 S2 present Capillary refill < 3 seconds Patient's skin is warm and dry. Respiratory: Airway is patent Respiratory effort is even, unlabored, Respiratory pattern is regular, symmetrical, Breath sounds are clear bilaterally. GI: No deficits noted. No signs and/or symptoms were reported involving the gastrointestinal system. : Urine is blood tinged, Reports burning with urination. EENT: No deficits noted. No signs and/or symptoms were reported regarding the EENT system. Derm: Skin is intact, is healthy with good turgor, Skin is dry, Skin is normal, Skin temperature is warm. Musculoskeletal: Circulation, motion, and sensation intact. Range of motion: intact in all extremities. 07:45 General: Appears in no apparent distress. comfortable, well groomed, well developed, kc6 Behavior is calm, cooperative, appropriate for age, Reports chills for 0-12 hours. Pain: Denies pain. Neuro: Level of Consciousness is awake, alert, obeys commands, Oriented to person, place, time, situation, Appropriate for age. Cardiovascular: Capillary refill < 3 seconds. Respiratory: Airway is patent Trachea midline Respiratory effort is even, unlabored, Respiratory pattern is regular, symmetrical. GI: No signs and/or symptoms were reported involving the gastrointestinal system. : 3-way catheter in place to gravity drainage clamped Urine is blood tinged, Reports burning with urination. EENT: No signs and/or symptoms were reported regarding the EENT system. Derm: No signs and/or symptoms reported regarding the dermatologic system. Skin is intact, is healthy with good turgor, Skin is pink, warm \T\ dry. Wound noted Wound is located just below the umbilicus. sutures in place with glue. no redness, swelling, or drainage noted. some yellow/green bruising located around the surgical site. Musculoskeletal: No signs and/or symptoms reported regarding the musculoskeletal system. Circulation, motion, and sensation intact. Range of motion: intact in all extremities. 08:45 Reassessment: Patient appears in no apparent distress at this time. No changes from kc6 previously documented assessment. Patient and/or family updated on plan of care and expected duration. Pain level reassessed. Patient is alert, oriented x 3, equal unlabored respirations, skin warm/dry/pink. 09:26 Reassessment: Patient appears in no apparent distress at this time. No changes from kc6 previously documented assessment. Patient and/or family updated on plan of care and expected duration. Pain level reassessed. Patient is alert, oriented x 3, equal unlabored respirations, skin warm/dry/pink. Vital Signs: 06:19 BP 105 / 56; Pulse 103; Resp 18; Temp 98.7(TE); Pulse Ox 93% on R/A; Weight 90.72 kg; br2 Height 5 ft. 11 in. ; Pain 0/10; 06:45 BP 103 / 54; Pulse 98; Resp 18; Pulse Ox 94% ; vc1 07:46 BP 105 / 51; Pulse 80; Resp 18 S; Pulse Ox 100% on R/A; Pain 0/10; kc6 09:14 BP 112 / 50; Pulse 78; Resp 18 S; Pulse Ox 100% on R/A; kc6 06:19 Body Mass Index 27.89 (90.72 kg, 180.34 cm) br2 06:19 Pain Scale: Adult br2 07:46 Pain Scale: Adult kc6 ED Course: 06:10 Patient arrived in ED. jj6 06:12 Kody Hough MD is Attending Physician. jovany 06:21 First set of blood cultures drawn by me. oe 06:27 Triage completed. br2 06:27 Arm band placed on right wrist. EKG completed in triage. Results shown to MD. EKG br2 completed in triage. Results shown to . 06:29 Elvi Wilhelm RN is Primary Nurse. vc1 06:30 Inserted saline lock: 18 gauge in left antecubital area, using aseptic technique. Blood br2 collected. Flushed with 10 mL NS. 06:37 Second set of blood cultures drawn by me. oe 06:44 COVID-19 Ag + Flu A+B Ag Sent. oe 06:46 Blood Culture Adult (2) Sent. oe 06:46 Lipase Sent. oe 06:46 Basic Metabolic Panel Sent. oe 06:46 CBC with Diff Sent. oe 06:46 LFT's Sent. oe 06:46 Magnesium Sent. oe 06:46 NT PRO-BNP Sent. oe 06:47 PT-INR Sent. oe 06:47 Troponin HS Sent. oe 06:48 COVID-19 Ag + Flu A+B Ag Sent. oe 06:49 XRAY Chest (1 view) In Process Unspecified. EDMS 07:00 Report received from SHANDA Boles. kc6 07:00 Patient has correct armband on for positive identification. Placed in gown. Bed in low kc6 position. Call light in reach. Side rails up X2. Adult w/ patient. monitor car operator on. Pulse ox on. NIBP on. Door closed. Noise minimized. Lights dimmed. Warm blanket given. Pillow given. Verbal reassurance given. 07:00 Patient maintains SpO2 saturation greater than 95% on room air. kc6 07:00 Bladder irrigated via Rivers with 3 L normal saline returned yellow urine Patient kc6 tolerated well. 07:08 CT Stone Protocol In Process Unspecified. EDMS 07:32 initiated a transfer with Reese from the [facility]. eb 07:59 connected the ED doc personal investment adviser for [facility] with Dr. Santo for patient transfer eb consultation. 08:01 administrative approval given by Reese Fuentes Rn/ patient has been accepted to [facility] ED/ Dr. Laney Andujar has accepted the patient in transfer/ report to be called to [phone]. 09:26 No provider procedures requiring assistance completed. Patient transferred, IV remains kc6 in place. Administered Medications: 07:02 Not Given (Patient Refused; took at homee): [id number] mg PO once vc1 07:17 Drug: Meropenem IV 1 grams IV at per protocol once; (mix in NS 100 mL) Route: IV; Rate: vc1 per protocol; Site: left antecubital; 07:44 Follow up: Response: No adverse reaction; IV Status: Completed infusion; IV Intake: kc6 100ml 07:17 Drug: NS 0.9% IV (30 ml/kg) 30 ml/kg IV at bolus once; Sepsis Protocol; to be given as vc1 a bolus over 90 minutes Route: IV; Rate: bolus; Site: left antecubital; 09:26 Follow up: Response: No adverse reaction; IV Status: Completed infusion kc6 07:17 Drug: Famotidine IVP 20 mg IVP once; dilute with 10 mL 0.9% NaCl; give over 2 minutes vc1 Route: IVP; Site: left antecubital; 07:44 Follow up: Response: No adverse reaction kc6 07:28 Not Given (Duplicate Order): aspirinchewable tablet 324 mg PO once; 81 mg tablets x 4 [facility] 07:44 Drug: Magnesium Sulfate IVPB 1 grams IVPB once over 1 hrs Route: IVPB; Infused Over: 1 kc6 hrs; Site: left antecubital; 08:49 Follow up: Response: No adverse reaction; IV Status: Completed infusion; IV Intake: kc6 100ml 08:50 Drug: metroNIDAZOLE IVPB 500 mg 100 ml IVPB at 200 ml/hr once over 30 mins Volume: 100 kc6 ml; Route: IVPB; Rate: 200 ml/hr; Infused Over: 30 mins; Site: left antecubital; 09:25 Follow up: Response: No adverse reaction; IV Status: Infusion continued upon transfer; kc6 IV Intake: 100ml Medication: 09:26 VIS not applicable for this client. kc6 Intake: 07:44 IV: 100ml; Total: 100ml. kc6 08:49 IV: 100ml; Total: 200ml. kc6 09:25 IV: 100ml; Total: 300ml. kc6 Outcome: 06:48 ER care complete, transfer ordered by MD. manzo 09:26 Transferred by [facility]. [place] [facility] [facility] kc6 completed. 09:26 Condition: good 09:26 Instructed on the need for transfer, 09:29 Patient left the ED. kc6 Signatures: Dispatcher [employer] EDKody Ortega MD MD cha Espinosa, Orlando oe Botello Kita eb Gaby, Kaylee jj6 Elvi Wilhelm RN RN vc1 Faustina Christensen RN RN kc6 Alma Garcia RN RN br2 Corrections: (The following items were deleted from the chart) 07:47 07:46 BP 117 / 49; Pulse 80bpm; Resp 18bpm; Spontaneous; Pulse Ox 100% RA; Pain 0/10, kc6 Adult; kc6 09:28 07:45 Derm: No signs and/or symptoms reported regarding the dermatologic system. Skin kc6 is intact, is healthy with good turgor, Skin is pink, warm \T\ dry. kc6
[2025-01-20] MEDS ORDERED: NA CHLORIDE 0.9% 1,000 ML ONE ×2 (06:50→08:12)
[2025-01-20] MEDS ORDERED: FAMOTIDINE 20 MG/2 ML VIAL IV ONE (06:50)
[2025-01-20] MEDS ORDERED: NA CHLORIDE 0.9% 100 ML ONE (06:50)
[2025-01-20 06:55] LABS: PT Prothrombin Time 14.3 SECONDS (10-13.0); Protime INR 1.27
--- NOTE | 2025-01-20 07:07 | RAD REPORT ---
EXAMINATION: ONE VIEW CHEST XR CLINICAL INDICATION: Male, 79 years old.,Cough;Fever TECHNIQUE: Frontal chest projection is submitted. Examination is limited by patient positioning and t echnique. COMPARISON: 11/29/2022 FINDINGS: The lungs are well inflated and clear. No pneumothorax or sizable effusion. The heart is normal in s ize. Mediastinal contours are unremarkable. IMPRESSION: No acute intrathoracic abnormalities.
[2025-01-20 07:08] LABS: Absolute Basophils 0.1 K/uL (0-0.5); Absolute Lymphocytes (CBC) 0.1 K/uL (0.7-4.9); Absolute Monocytes 0.4 K/uL (0.1-1.3); Absolute Neutrophil 6.7 K/uL (1.8-8.0); Albumin 2.7 g/dL (3.4-5.0); Albumin/Globulin Ratio 0.8 (1.1-1.8); Anion Gap 10.5 mEq/L (5.0-15.0); Basophils % 1.4 % (0-1.3); Bilirubin Direct 0.4 mg/dL (0-0.2); Bilirubin Indirect, Calculated 0.8 mg/dL (0.2-0.8); Bilirubin Total 1.2 mg/dL (0.2-1.0); Eosinophils % 0.4 % (0-4.4); Globulin 3.6 g/dL (2.3-3.5); Hematocrit 32.9 % (39.6-49.0); Hemoglobin 11.8 g/dL (13.6-17.9); Lymphocytes % 1.4 % (15.3-44.8); MCH 32.4 pg (27.0-35.0); MCHC 35.8 g/dL (32.0-36.0); MCV 90.5 fL (80-100); MPV 7.1 fL (7.6-11.3); Magnesium 1.6 mg/dL (1.6-2.4); Monocytes % 5.7 % (3.3-12.3); Neutrophils % 91.1 % (41.7-73.7); Nucleated Red Blood Cells % 0.1 % (0-0); Platelets 168 thou/uL (152-406); Potassium 3.5 mEq/L (3.5-5.1); Protein, Total 6.3 g/dL (6.4-8.2); RBC Red Blood Cell Count 3.64 M/uL (4.33-5.43); Troponin High Sensitivity 18.1 pg/mL (<58.9)
--- NOTE | 2025-01-20 07:22 | RAD REPORT ---
EXAMINATION: CT Stone Protocol CLINICAL INDICATION: Male, 79 years old. Abd pain;Pain;Pyelonephritis TECHNIQUE: CT abdomen and pelvis was performed, without IV contrast, as per department protocol. Axia l, sagittal and coronal reconstructions were obtained. One or more of the following dose reduction techniques were used: Automated exposure control, adjustment of the mA and kV according to the patien t size, and iterative reconstruction. Unless otherwise specified, incidental findings do not require dedicated imaging follow-up. COMPARISON: No prior exam. FINDINGS: The lack of intravenous contrast limits the sensitivity of this exam for evaluation of solid visceral organs, vascular structures, and retroperitoneum. LOWER CHEST: The visualized lung bases are clear. LIVER: Normal in size and contour. No focal lesion. BILIARY SYSTEM: Numerous gallstones. SPLEEN: Normal size. No focal lesion. PANCREAS: No mass, ductal dilation, or juan-pancreatic fluid. ADRENALS: Normal; no mass. KIDNEYS AND URETERS: Normal size and contour. No hydronephrosis. No radiopaque calculi. 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 URINARY BLADDER: Decompressed with Nichloson catheter in place. Nonspecific wall prominence and adjacent fat stranding, could relate to ongoing cystitis. Single locule of gas seen in the precystic space, series 201 image 124 and series 203 image 80. Nonspecific few locules of gas may also be present with in the seminal vesicle. GASTROINTESTINAL TRACT: Lobulated mass contiguous with the adventitia of the most distal descending c olon, extending to the pelvic sidewall, with nodular adjacent components which may represent coalescent lymph nodes. The mass measures 4.7 x 4.2 cm in greatest AP and CC dimensions, and 5.8 cm i n greatest craniocaudal extent. The largest satellite nodular component measures up to 1.9 cm. No adjacent inflammatory changes Few colonic diverticula. No evidence of bowel obstruction, significant free fluid, free air or abscess. APPENDIX: Normal appendix. LYMPH NODES: No other suspicious lymphadenopathy. MUSCULOSKELETAL: No acute or suspicious osseous abnormality. ADDITIONAL FINDINGS: None. IMPRESSION: Lobulated left lower quadrant mass up to 5.8 cm in greatest dimension closely related to the descendi ng colon adventitia, extending to the pelvic sidewall, which could relate to a chronic abscess or collection in the setting of prior diverticulitis, or a malignant mass with origin from the colonic w all or the adjacent pelvic sidewall lymph nodes given some satellite nodular components. If clinically indicated, this may be accessible for CT-guided biopsy. Pericystic fat stranding of the decompressed urinary bladder, with single tiny locule of gas within t he precystic space, likely extraperitoneal. Please correlate clinically for evidence of ongoing cystitis. Cholelithiasis and other incidental findings as above.
[2025-01-20 07:38] LABS: Influenza A Ag Negative
[2025-01-20 07:39] LABS: Influenza B Ag Negative; SARS-CoV-2 Antigen Rapid Res Negative (Negative)
[2025-01-20] MEDS ORDERED: MAGNESIUM SULFATE 1 gm IVPB 1 GM/100 ML BAG IV ONE (07:39)
[2025-01-20 07:47] LABS: Specific Gravity 1.011 (1.005-1.030); Sqamous Epithelial None Seen /HPF (None Seen); Urine Bacteria 20-50 /HPF (<20); Urine Bilirubin NEGATIVE (Negative); Urine Blood 3+ (OVER) (Negative); Urine Clarity Extremely Turbid (Clear); Urine Color Brown (Yellow); Urine Culture Reflex Order REFLEXED; Urine Glucose NEGATIVE (Negative); Urine Ketones NEGATIVE (Negative); Urine Microscopic Reflex YN ORDER UMIC; Urine Mucus 2+ /HPF (None Seen); Urine Nitrite NEGATIVE (Negative); Urine Protein 2+ (Negative); Urine RBC >50 /HPF (None Seen); Urine Urobilinogen Normal (Normal); Urine WBC >50 /HPF (<5); Urine WBC Clump Few /HPF (None Seen)
[2025-01-20 07:51] LABS: Differential Total Cells Count 100; Lymphocytes 4 % (15-42); Monocytes 2 % (0-10); Platelet Estimate ADEQ; Segmented Neutrophils 94 % (40-80)
[2025-01-20 07:52] LABS: Blood Morphology Comment NOT SEEN (NOT SEEN)
[2025-01-20] MEDS ORDERED: METRONIDAZOLE 500mg IVPB 500 MG/100 ML BAG IV ONE (08:12)
[2025-01-20 09:44] VITALS: TEMP 98.7
[2025-01-20 09:56] VITALS: O2SAT 100
[2025-01-20 09:57] VITALS: BP 112/50
--- NOTE | 2025-01-21 11:31 | EKG ---
Test Date: 2025-01-20 Test Time: 06:37:44 Thermal Cutting Machine Operator: SHELLEY MEASUREMENT RESULTS: Intervals: Rate: 97 OK: 142 QRSD: 98 QT: 328 QTc: 416 [place]: P: 62 OK: 142 QRS: 43 T: 48 INTERPRETIVE STATEMENTS: Normal sinus rhythm Normal ECG Compared to ECG 03/22/2022 07:42:45 Sinus bradycardia no longer present Myocardial infarct finding no longer present Electronically Signed On 01-21-25 11:28:58 CDT by Elias Ramirez
== END 2025-01-20 09:29 | disposition short-term general hospital (02) ==
LOC: ER 06:09
DX: N39.0 Urinary tract infection, site not specified (principal); T83.038A Leakage of other urinary catheter, initial encounter; K63.89 Other specified diseases of intestine; R10.819 Abdominal tenderness, unspecified site; Z98.890 Other specified postprocedural states; Z11.52 Encounter for screening for COVID-19
CPT/HCPCS: 96365; 96367; 96368; 93005; 87040 ×2; 87088; 85025; 81001; 87086; 80048; 36415; 83735; 85610; 80076; 87077; 87186; 84484; 83690; 83880; 76377; 74176; 71045; 51700; 96375; 99285; 87428; J3475; J2185; J7030 ×2

== ENCOUNTER 2025-02-07 19:45 | Emergency (ER) | payer OTHER, MEDICARE ==
--- OUTSIDE RECORDS SUMMARY | 2025-02-07 19:48 | XMS REPORT | Clinical Summary ---
Author Name Unknown Organization [facility] Address [address] [place] [address] Care Team Providers Care Tattoo Identifier Name Role Phone Guillermo Ward MD Unavailable [phone] Leoncio Fierro Unavailable Chan Vargas MD Unavailable Karlene Edmond RN Unavailable Encounters Date Type Department Care Team Description 02/07/2025 Telephone [facility] PATIENT ACCESS Adirenne Moya, RN after 02/08/2024 Social History Tobacco Use Types Packs/Day Years Used Date Smoking Tobacco: Never Assessed Sex and Gender Information Value Date Recorded Sex Assigned at Male 02/07/2025 2:21 PM CDT Legal Sex Male 1:16 PM CDT Gender Identity Male 02/07/2025 2:21 PM CDT Sexual Orientation Not on file Plan of Treatment Upcoming Encounters Date Type Department Care Team (Late st Contact Info) Description 02/13/2025 10:30 AM CDT [facility] PATIENT ACCESS 02/18/2025 10:00 AM CDT Office [facility] [address] [place] [address], [address] [place] [address] Linda Fernando PA [address] [place] [address] [email or web address] Health Maintenance Due Date Last Done Comments Pneumococcal Vaccine: 50+ Years (1 of 1 - PCV) 997 COVID-19 Vaccine (2023-25 season) 2024 Influenza Vaccine (#1) 2024 Insurance MEDICARE PART A AND B AAR-SECONDARY ONLY [facility] Address: [facility] [address] [place] [address] MEDICARE PART A AND B AAR-SECONDARY ONLY [facility] Address: [facility] [address] [place] [address] Care Teams Tattoo Identifier Relationship Specialty Start Date End Date Guillermo Ward MD [address] [place] [address] [address] [place] [address] [email or web address] PCP - External Primary Care Provider Family Practice 02/07/25 Leoncio Fierro [address] [facility] [address] [place] [address] PCP - External Follow Up A 02/07/25 Chan Vargas MD [address] [facility] [address] [place] [address] PCP - External Follow Up B Cardiology 02/07/25 Karlene Edmond, RN [facility] [place] [address] [email or web address] Intake Nurse Navigator Nursing 02/07/25
[2025-02-07] MEDS ORDERED: TETRACAINE HCL 0.5% 4ML OPTH ONE (20:16)
[2025-02-07] MEDS ORDERED: FLUORESCEIN SODIUM 1 MG/WRAP ONE (20:16)
--- NOTE | 2025-02-07 20:44 | EDPHYS ---
Physician Documentation [facility] Name: Jozef Serrano Age: 79 yrs Sex: Male : 1945 Arrival Date: 02/07/2025 Time: 19:45 Bed 7 Private MD: ED Physician Norberto Gillis HPI: 02/07 20:11 This 79 yrs old Male presents to ER via Ambulatory with complaints of Foreign rn Body In Eye. 20:11 The patient is experiencing foreign body sensation, The patient sustained an abrasion, rn to the left eye. Patient reports using weedeater, no eye protection, something hit his left eye, scraped his left eye and see something and feels something embedded in sclera. No vision change. No pain to eye. Otherwise no other acute complaints.. 20:42 Onset: The symptoms/episode began/occurred just prior to arrival. rn Historical: - Allergies: 20:05 KETAMINE; ha1 20:05 Morphine; ha1 - Home Meds: 20:05 levothyroxine oral [Active]; ha1 - PMHx: 20:05 BPH; diabetes mellitus; Hypothyroidism; ha1 - Immunization history:: Adult Immunizations not up to date. - Infectious Disease History:: Denies. - Social history:: Smoking status: Patient denies any tobacco usage or history of. - Family history:: not pertinent. - Hospitalizations: : No recent hospitalization is reported. ROS: 20:11 Constitutional: Negative for fever, chills, and weight loss, Eyes: Positive for foreign rn body sensation and abrasion to the left eye Exam: 20:11 Constitutional: This is a well developed, well nourished patient who is awake, alert, rn and in no acute distress. Eyes: Pupils equal round and reactive to light, extra-ocular motions intact. Cornea normal without defect or foreign body. Sclera at 7 o'clock position has a linear abrasion with small foreign body embedded in sclera. No evidence of globe rupture. Seems superficial. 20:42 Visual Acuity: Visual acuity is within normal limits. rn Vital Signs: 19:50 BP 117 / 76; Pulse 74; Resp 17 S; Temp 97.1(O); Pulse Ox 97% ; Weight 88.45 kg; Height ha1 5 ft. 11 in. ; Pain 2/10; 21:00 BP 130 / 71; Pulse 74; Resp 18; Temp 97.1; Pulse Ox 97% ; Pain 0/10; bm8 19:50 Body Mass Index 27.20 (88.45 kg, 180.34 cm) ha1 19:50 Pain Scale: Adult ha1 21:00 Pain Scale: Adult bm8 [place] Coma Score: 21:00 Eye Response: spontaneous(4). Motor Response: obeys commands(6). Verbal Response: bm8 oriented(5). Total: 15. Procedures: 20:42 Foreign Body Removal: dirt, from the left eye, by using a cotton-tipped swab, normal rn saline irrigation, Dressing: none, The patient tolerated the removal well, Foreign body successfully removed after normal saline irrigation and Q-tip. Foreign body removal performed after tetracaine numbing.. MDM: 20:02 Medical Screening Exam initiated rn 20:42 Differential diagnosis: Scleral abrasion, foreign body. Data reviewed: vital signs, rn nurses notes, and as a result, I will discharge patient. Counseling: I had a detailed discussion with the patient and/or guardian regarding the historical points, exam findings, and any diagnostic results supporting the discharge/admit diagnosis, the need for outpatient follow up, to return to the emergency department if symptoms worsen or persist or if there are any questions or concerns that arise at home. Response to treatment: the patient's symptoms have markedly improved after treatment, and as a result, I will discharge patient. Special discussion: I discussed with the patient/guardian in detail that at this point there is no indication for admission to the hospital. It is understood, however, that if the symptoms persist or worsen the patient needs to return immediately for re-evaluation. Based on the history and exam findings, there is no indication for further emergent testing or inpatient evaluation. I discussed with the patient/guardian the need to see the opthamologist for further evaluation of the symptoms. Administered Medications: 20:30 Drug: Tetracaine Ophthalmic Drops 0.5 % 1 drops Ophthalmic once Route: Ophthalmic; bm8 Site: left eye; Disposition Summary: 02/07/25 20:44 Discharge Ordered Notes: Location: Home rn Problem: new rn Symptoms: have improved rn Condition: Stable rn Diagnosis - Foreign body in other and multiple parts of external eye, left eye, initial rn encounter Followup: rn - With: To Chavez MD - When: As needed - Reason: Recheck today's complaints, Re-evaluation by your physician Discharge Instructions: - Discharge Summary Sheet rn - Eye Foreign Body rn Forms: - Medication Reconciliation Form rn - Antibiotic operations intern - Prescription Opioid Use rn - Patient Portal Instructions rn - Leadership Thank You Letter rn Prescriptions: - Vigamox 0.5 % Ophthalmic Drops - instill 1 drop OPHTHALMIC route every 8 hours for 7 days; 5 milliliter; rn Refills: 0, Product Selection Permitted Signatures: Norberto Gillis MD MD rn Ayala, Heidy RN RN ha1 Idris Lema, RN RN bm8
--- NOTE | 2025-02-07 20:44 | ER ---
Nurse's Notes 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 REDNESS ON THE LEFT EYE, IT FEELS LIKE I HAVE SOMETHING IN IT. 19:50 Coronavirus screen: Client denies travel out of the [place] in the last 14 days. Ebola ha1 Screen: No symptoms or risks identified at this time. Initial Sepsis Screen: Does the patient meet any 2 criteria? No. Patient's initial sepsis screen is negative. Does the patient have a suspected source of infection? No. Patient's initial sepsis screen is negative. Risk Assessment: Do you want to hurt yourself or someone else? Patient reports no desire to harm self or others. Onset of symptoms was February 07, 2025. 19:50 Method Of Arrival: Ambulatory ha1 19:50 Acuity: CATRACHO 4 ha1 Triage Assessment: 20:05 General: Appears comfortable, Behavior is calm, cooperative. Pain: Complains of pain in ha1 left eye Pain currently is 2 out of 10 on a pain scale. EENT: Eyes REDNESS OF LEFT EYE. Reports FOREIGN BODY IN THE LEFT EYE. Neuro: Level of Consciousness is awake, alert, obeys commands, Oriented to person, place, time, situation. Cardiovascular: Capillary refill < 3 seconds Patient's skin is warm and dry. Respiratory: Airway is patent Respiratory effort is even, unlabored, Respiratory pattern is regular, symmetrical. GI: No signs and/or symptoms were reported involving the gastrointestinal system. Abdomen is round non-distended. : No signs and/or symptoms were reported regarding the genitourinary system. Derm: No signs and/or symptoms reported regarding the dermatologic system. Historical: - Allergies: 20:05 KETAMINE; ha1 20:05 Morphine; ha1 - Home Meds: 20:05 levothyroxine oral [Active]; ha1 - PMHx: 20:05 BPH; diabetes mellitus; Hypothyroidism; ha1 - Immunization history:: Adult Immunizations not up to date. - Infectious Disease History:: Denies. - Social history:: Smoking status: Patient denies any tobacco usage or history of. - Family history:: not pertinent. - Hospitalizations: : No recent hospitalization is reported. Screenin:00 [facility] ED Fall Risk Assessment (Adult) History of falling in the last 3 months, bm8 including since admission No falls in past 3 months (0 pts) Confusion or Disorientation No (0 pts) Intoxicated or Sedated No (0 pts) Impaired Gait No (0 pts) Mobility Assist Device Used No (0 pt) Altered Elimination No (0 pt) Score/Fall Risk Level 0 - 2 = Low Risk Oriented to surroundings, Maintained a safe environment, Educated pt \T\ family on fall prevention, incl call for assistance when getting out of bed, Assessed \T\ reinforced patient's understanding of fall precautions, Hourly rounding (assess needs \T\ fall precautionary measures) done, Used ambulatory aids as needed (educated on \T\ assisted with), Used gait belt as appropriate. Abuse screen: Denies threats or abuse. Nutritional screening: No deficits noted. Tuberculosis screening: No symptoms or risk factors identified. Assessment: 21:00 General: Appears in no apparent distress. comfortable, Behavior is calm, cooperative, bm8 appropriate for age. EENT: Eyes are tearing on inner aspect of conjunctiva of left eye Sclera/Cornea are reddened in inner aspect of conjunctiva of left eye Reports pain in left eye. Vital Signs: 19:50 BP 117 / 76; Pulse 74; Resp 17 S; Temp 97.1(O); Pulse Ox 97% ; Weight 88.45 kg; Height ha1 5 ft. 11 in. ; Pain 2/10; 21:00 BP 130 / 71; Pulse 74; Resp 18; Temp 97.1; Pulse Ox 97% ; Pain 0/10; bm8 19:50 Body Mass Index 27.20 (88.45 kg, 180.34 cm) ha1 19:50 Pain Scale: Adult ha1 21:00 Pain Scale: Adult bm8 [place] Coma Score: 21:00 Eye Response: spontaneous(4). Motor Response: obeys commands(6). Verbal Response: bm8 oriented(5). Total: 15. ED Course: 19:48 Patient arrived in ED. im 20:02 Gillis, Norberto, MD is Attending Physician. rn 20:05 Triage completed. ha1 20:43 To Chavez MD is Referral Physician. rn 21:00 Idris Lema, RN is Primary Nurse. bm8 21:00 Arm band placed on right wrist. bm8 21:00 Patient has correct armband on for positive identification. Bed in low position. Side bm8 rails up X 1. Adult w/ patient. Provided Education on: post er care. Door closed. Noise minimized. Verbal reassurance given. Head of bed elevated. 21:00 No provider procedures requiring assistance completed. Patient did not have IV access bm8 during this emergency room visit. Administered Medications: 20:30 Drug: Tetracaine Ophthalmic Drops 0.5 % 1 drops Ophthalmic once Route: Ophthalmic; bm8 Site: left eye; Medication: 21:00 VIS not applicable for this client. bm8 Outcome: 20:44 Discharge ordered by MD. rn 21:00 Discharged to home ambulatory, bm8 21:00 Condition: stable 21:00 Discharge instructions given to patient, family, Instructed on discharge instructions, follow up and referral plans. no drinking with medication, no driving heavy equipment, medication usage, Demonstrated understanding of instructions, follow-up care, medications, Prescriptions given X 1, 21:03 Patient left the ED. bm8 Signatures: Norberto Gillis MD MD rn Ayala, Heidy, RN RN [facility] Arina Barroso Idris Lema RN RN 8
[2025-02-07 21:50] VITALS: TEMP 97.1; O2SAT 97
[2025-02-07 21:51] VITALS: BP 130/71
== END 2025-02-07 21:03 | disposition home or self-care (01) ==
LOC: ER 19:45
PROC: 08C1XZZ Extirpation of Matter from Left Eye, External Approach (ICD-10-PCS; principal; 2025-02-07)
DX: T15.82XA Foreign body in other and multiple parts of external eye, left eye, initial encounter (principal)
CPT/HCPCS: 99283